=== PATIENT | male | born 1970 | race Caucasian/White ===

== ENCOUNTER 2020-10-25 17:21 | Outpatient (CLI) | payer BC, SELFPAY ==
[2020-10-25 17:47] LABS: Basophils Absolute Auto 0.2 K/mm3 (0.0-0.1); Basophils Percent Auto 1.3 % (0.2-1.2); Eosinophils Absolute Auto 0.3 K/mm3 (0-0.3); Eosinophils Percent Auto 2.9 % (0-4.4); Hematocrit 45.1 % (42.0-52.0); Hemoglobin 15.2 g/dL (14.0-18.0); Immature Granulocyte Absolute 0.04 K/mm3 (0.00-0.031); Immature Granulocyte Percent A 0.4 % (0-0.5); Lymphocytes Absolute Auto 4.05 K/mm3 (0.9-3.2); Lymphocytes Percent Auto 36.1 % (18.3-44.2); Mean Corpuscular HGB Conc 33.7 g/dl (32-36); Mean Corpuscular Hemoglobin 30.9 pg (26-34); Mean Corpuscular Volume 91.7 fl (80-100); Monocytes Absolute Auto 0.5 K/mm3 (0.1-0.6); Monocytes Percent Auto 4.8 % (2.6-8.5); Neutrophils Absolute Auto 6.1 K/mm3 (1.3-6.7); Neutrophils Percent Auto 54.5 % (45.5-73.1); Platelet Count Result 191 k/mm3 (150-375); Red Blood Count 4.92 M/mm3 (4.6-6.20); Red Cell Distribution Width 12.6 % (11.5-14.5); White Blood Count 11.2 K/mm3 (4.5-10.0)
[2020-10-25 17:58] LABS: Alanine Aminotransferase 15 U/L (4-50); Albumin Level 4.7 g/dL (3.5-5.1); Alkaline Phosphatase 73 U/L (38-126); Anion Gap 9 mmol/L (8-16); Aspartate Amino Transferase 29 U/L (17-59); Bilirubin,Total 0.5 mg/dL (0.2-1.3); Blood Urea Nitrogen 14 mg/dL (9-20); Calcium 9.8 mg/dL (8.4-10.2); Carbon Dioxide 27 mmol/L (22-30); Chloride 102 mmol/L (98-107); Estimated Glomerular Filt Rate > 60; Glucose 80 mg/dL (75-110); Potassium 3.8 mmol/L (3.4-5.0); Sodium 138 mmol/L (137-145)
[2020-10-25 18:30] LABS: Prostate Specific Antigen 1.4 ng/mL (< OR = 4.0)
[2020-10-28 19:43] LABS: Sex Hormone Binding Globulin 51 nmol/L (10-50)
[2020-10-30 14:13] LABS: Testosterone Free 216.4 pg/mL (35.0-155.0); Testosterone Total 1387 ng/dL (250-1100)
[2020-10-31 20:26] LABS: Estradiol, Ultrasensitive 6 pg/mL (< OR = 29)
== END 2020-10-25 17:22 | disposition home or self-care (01) ==
LOC: ANHLAB 17:29
PROVIDERS: PCP Chiropractor; Visit Provider Chiropractor
DX: N40.0 Benign prostatic hyperplasia without lower urinary tract symptoms (principal); E29.1 Testicular hypofunction; D75.1 Secondary polycythemia; Z79.890 Hormone replacement therapy
CPT/HCPCS: 36415; 80053; 82670; 84153; 84270; 84402; 84403; 85025

== ENCOUNTER 2021-01-03 20:06 | Emergency (ER) | payer BC, SELFPAY ==
--- NOTE | 2021-01-03 20:25 | PC.NURSE ---
1ST CALL FOR TRIAGE, NO ANSWER
--- NOTE | 2021-01-03 21:09 | PC.NURSE ---
2ND CALL NO ANSWER FOR TRIAGE
== END 2021-01-03 21:09 | disposition left against medical advice (07) ==
LOC: ANHED 21:24
DX: Z53.21 Procedure and treatment not carried out due to patient leaving prior to being seen by health care provider (principal)
CPT/HCPCS: 99199

== ENCOUNTER 2024-07-18 19:38 | Inpatient (IN) | payer BC, SELFPAY ==
--- NOTE | ~2024-07-18 | CT_ITS ---
EXAMINATION: CT abdomen pelvis w con DATE: 07/18/2024 21:11 INDICATION: LLQ pain. eval diverticulitis TECHNIQUE: Computed tomography (CT) of the abdomen and pelvis was performed with 100 mL Omnipaque-350 intravenous contrast. Automated exposure control and iterative reconstruction technique were employe d. The dose-length product was 206.83 mGy-cm. COMPARISON: None. FINDINGS: Lower thorax: Unremarkable Liver: Normal. Biliary/Gallbladder: Gallbladder is normal. No bile duct dilation. Pancreas: No mass or duct dilation. Spleen: Normal. Adrenals:No mass. Kidneys: Ectopic right kidney. Subcentimeter renal hypodensities on the left, too small to characteri ze but statistically most likely represent cysts. GI tract: Mild distal esophageal and gastric wall edema. No small or large bowel dilation. Long segme nt of marked small bowel inflammatory change including wall thickening and surrounding mesenteric inf lammation in the right lower abdomen and right upper pelvis, with evidence of extraluminal gas (witho ut a discrete wall), and adjacent 2.8 cm and 3.4 cm rim-enhancing fluid and gas collections likely re presenting mesenteric abscesses (which may be in communication). Moderate length segment of sigmoid w all thickening with surrounding inflammatory change, adjacent to the small bowel inflammatory process , and extending into the left pelvis. Appendix not confidently visualized Diverticulosis without dive rticulitis. Mesentery/Peritoneum: No ascites, mass, or free air. Retroperitoneum: No mass. Atherosclerotic calcifications of intra-abdominal arterial vessels. Pelvis: Partially distended urinary bladder with moderate wall thickening. Prostatomegaly. Soft Tissues: Soft tissues and body wall unremarkable. Bones: No acute osseous finding. IMPRESSION: Severe long segment small bowel enteritis with contained perforation and adjacent mesenteric abscesse s. Moderate length segment of sigmoid colitis, with surrounding inflammatory change. Correlate for history of inflammatory bowel disease. Infectious or ischemic enteritis/colitis are als o in the differential. Cystitis versus urinary bladder wall thickening from incomplete distention. Reviewed, dictated and finalized at location K. IMPRESSION: Severe long segment small bowel enteritis with contained perforation and adjace nt mesenteric abscesses. Moderate length segment of sigmoid colitis, with surrounding inflammatory wilkins e. Correlate for history of inflammatory bowel disease. Infectious or ischemic ent eritis/colitis are also in the differential. Cystitis versus urinary bladder wall thickening from incomplete distention.
[2024-07-18 19:40] VITALS: BP 161/69; PULSE 112; RESP 18; TEMP 36.3; O2SAT 97
--- OUTSIDE RECORDS SUMMARY | 2024-07-18 19:40 | XMS_ITS | Clinical Summary ---
Author Organization [facility] Address [address] [place] [phone] Phone Care Team Providers Care Refrigerating Oiler Name Role Phone Unavailable Primary Care Provider Unavailabl e Social History Tobacco Use Types Packs/Day Years Used Date Smoking Tobacco: Never Assessed Sex and Gender Information Value Date Recorded Sex Assigned at Not on file Legal Sex Male 12:47 PM CDT Gender Identity Not on file Sexual Orientation Not on file Last Filed Vital Signs Vital Sign Reading Time Taken Comments Blood Pressure 101/67 10/04/2020 5:42 PM CDT Pulse 92 10/04/2020 5:42 PM CDT Temperature 36.7 C (98 F) 10/04/2020 5:42 PM CDT Respiratory Rate 18 10/04/2020 5:42 PM CDT Oxygen Saturation 95% 10/04/2020 5:42 PM CDT Inhaled Oxygen Concentration - - Weight 65.8 kg (145 lb) 10/04/2020 5:42 PM CDT Height 185.4 cm (6' 1 ) 10/04/2020 5:42 PM CDT Body Mass Index 19.13 10/04/2020 5:42 PM CDT Plan of Treatment Health Maintenance Due Date Last Done Comments DTAP/TDAP/TD VACCINES (1 - Tdap) 07/08/1987 HEPATITIS B VACCINES (1 of 3 - 19+ 3-dose series) 07/08/1987 COLORECTAL SCREENING 2013 Colorectal Cancer Screening 2013 FIT-DNA Q 3 years 2013 FIT/FOBT Q 1 year 2013 Flex Sig/CT Colonography Q 5 years 2013 ZOSTER VACCINE (1 of 2) 2018 INFLUENZA VACCINE (#1) 2023 PNEUMOCOCCAL VACCINE 0-49 YEARS Aged Out No longer eligible based on patient's age to complete this topic
--- OUTSIDE RECORDS SUMMARY | 2024-07-18 19:40 | XMS_ITS | CONTINUITY OF CARE DOCUMENT ---
Author Name phil villarreal Address Unknown Organization [facility] Address [address] [place] [address] Phone [phone] Care Team Providers Care Organisation And Methods Analyst Name Role Phone Connor Molina MD Unavailable Connor Molina MD Unavailable [phone] INSURANCE PROVIDERS Payer name Policy type / Coverage type [place] red libertarian ID [facility] [id number]
[2024-07-18 19:57] LABS: Basophils Absolute Auto 0.1 K/mm3 (0.0-0.1); Basophils Percent Auto 0.6 % (0.2-1.2); Eosinophils Absolute Auto 0.1 K/mm3 (0-0.3); Eosinophils Percent Auto 0.3 % (0-4.4); Hematocrit 51.7 % (42.0-52.0); Hemoglobin 17.5 g/dL (14.0-18.0); Immature Granulocyte Absolute 0.08 K/mm3 (0.00-0.031); Immature Granulocyte Percent A 0.4 % (0-0.5); Lymphocytes Absolute Auto 2.81 K/mm3 (0.9-3.2); Lymphocytes Percent Auto 15.6 % (18.3-44.2); Mean Corpuscular HGB Conc 33.8 g/dl (32-36); Mean Corpuscular Hemoglobin 31.4 pg (26-34); Mean Corpuscular Volume 92.8 fl (80-100); Monocytes Percent Auto 5.8 % (2.6-8.5); Neutrophils Absolute Auto 13.9 K/mm3 (1.3-6.7); Neutrophils Percent Auto 77.3 % (45.5-73.1); Platelet Count Result 211 k/mm3 (150-375); Red Blood Count 5.57 M/mm3 (4.6-6.20); Red Cell Distribution Width 12.7 % (11.5-14.5)
[2024-07-18 20:07] LABS: Alanine Aminotransferase 17 U/L (6-50); Albumin Level 5.1 g/dL (3.5-5.1); Alkaline Phosphatase 83 U/L (38-126); Anion Gap 11 mmol/L (4-12); Aspartate Amino Transferase 25 U/L (17-59); Bilirubin,Total 1.7 mg/dL (0.2-1.3); Blood Urea Nitrogen 17 mg/dL (9-20); Calcium 9.9 mg/dL (8.4-10.2); Carbon Dioxide 29 mmol/L (22-30); Chloride 98 mmol/L (98-107); Estimated CRCL calculation 66 ml/min; Estimated Glomerular Filt Rate > 60; Glucose 122 mg/dL (65-110); Lipase 47 U/L (23-300); Potassium 4.1 mmol/L (3.4-5.0); Sodium 138 mmol/L (137-145)
[2024-07-18 20:36] LABS: Add Urine Microscopic? YES; Appearance Urine Clear (Clear); Bacteria Urine None Seen /hpf; Bilirubin Urine 1+ (Negative); Blood Urine Negative (Negative); Color Urine Dark Yellow (Yellow); Glucose Urine UA Negative (Negative); Ketones Urine 1+ mg/dL (Negative); Leukocyte Esterase Ur Negative LEU/UL (Negative); Need Manual Microscopic Reviewed; Nitrate Urine Negative (Negative); Non Pathogenic Casts 0-2; Protein Urine 1+ mg/dL (Negative); RBC Urine 0-2 /hpf (0-2); Specific Grav Ur 1.028 (1.001-1.035); Squamous Epithelial Cell Urine None Seen /hpf (Few); WBC Urine 0-5 /hpf (0-3); pH Urine 5.5 (5.0-9.0)
--- NOTE | 2024-07-18 20:49 | ED.GENADULT ---
HPI - General Adult General Chief complaint: Abdominal Pain Stated complaint: Diverticulitis flare up Time Seen by Provider: 07/18/24 20:02 History of Present Illness HPI narrative: 54-year-old male history of diverticulitis with abscess presenting for left lower quadrant pain. Pain started 2 days ago. It is worse with coughing and movement. Patient says this feels similar to prior diverticulitis bouts that he has had. Previous treatment was a [facility]. He denies fevers chills chest pain difficulty breathing or urinary symptoms. Last bowel movement was 3 days ago. Patient had nausea and vomiting yesterday but is just nauseous today. Related Data Home Medications ?Medication ?Instructions ?Recorded ?Confirmed ?Last Taken ?Type multivitamin with minerals 4 tablet PO DAILY 07/30/23 07/30/23 Unknown History (Hair,Skin and Nails tablet) Allergies Allergy/AdvReac Type Severity Reaction Status Date / Time No Known Allergies Allergy Mild Unverified 07/18/24 19:39 [facility] Past Medical History Medical History (Updated 07/19/24 @ 01:14 by Ranjith Arteaga MD) History of mixed drug abuse Quit in 1997 Diverticulitis Arthritis Anxiety Family History Family History Grandparent Pancreatic cancer Alcoholism in family member Depression Anxiety Mother Pre-diabetes Depression Anxiety Heart problem Grandparent Alcoholism in family member Cerebrovascular accident Social History Social History Social History: Caffeine: Coffee all day long Smoking status: Current every day smoker Alcohol intake: current Alcohol use details: either every other night or every night Whisky Substance use: former Substance use type: does not use Last use: 26 years ago Do You Feel Safe in your Home?: Yes Lack of Transportation: No Lack of Food: Never True Current Housing: I Have Housing Concerned About Future Housing: No Difficulty Paying Gas/Electric Bills: No Difficulty Paying for Meds: No Currently Unemployed: No Education: High School Diploma/GED Difficulty w/ Childcare or Family Care: No Living arrangements: with family Occupation/Education: occupation 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 Head: atraumatic. EYES: EOMI, NOSE: Atraumatic NECK: Trachea midline RESPIRATORY: No increased rate of breathing CTAB CARDIOVASCULAR: Tachycardic no peripheral edema ABDOMINAL: Abdomen is tender lower quadrants with voluntary guarding, no rebound MUSCULOSKELETAl: No obvious deformities NEURO: Alert. Moving 4/4 extremities SKIN:: Warm, dry. Normal color PSYCHIATRIC: Normal affect Course Vital Signs Vital signs: Vital Signs Temperature 97.3 F L 07/18/24 19:40 Pulse Rate 112 H 07/18/24 19:40 Respiratory Rate 18 07/18/24 19:40 Blood Pressure 161/69 H 07/18/24 19:40 Pulse Oximetry 97 07/18/24 19:40 Oxygen Delivery Room Air 07/18/24 19:40 Temperature 97.3 F L 07/18/24 19:40 Pulse Rate 86 07/19/24 01:12 Respiratory Rate 15 07/19/24 01:12 Blood Pressure 108/74 07/19/24 01:12 Pulse Oximetry 100 07/19/24 01:12 Oxygen Delivery Room Air 07/18/24 19:40 Medical Decision Making [facility] Narrative Medical decision making narrative: -Course: 54-year-old male presenting with abdominal pain. CT abdomen pelvis showed multiple abdominal abscesses with contain extraluminal air. Patient has white count of 18 his tachycardic. Given 5 days own given 30 cc/kilogram bolus for sepsis. Dr. Guzman is contacted and is aware of the patient. He will see the patient in the morning. Patient will be admitted the hospitalist for further management -DDX includes but is not limited to: Diverticulitis, appendicitis, colitis -Co-morbidities complicating care: Daily alcohol without withdrawal, history of diverticulitis with abscess Vital Signs Vital Signs: Vital Signs Temperature 97.3 F L 07/18/24 19:40 Pulse Rate 112 H 07/18/24 19:40 Respiratory Rate 18 07/18/24 19:40 Blood Pressure 161/69 H 07/18/24 19:40 Pulse Oximetry 97 07/18/24 19:40 Oxygen Delivery Room Air 07/18/24 19:40 Temperature 97.3 F L 07/18/24 19:40 Pulse Rate 86 07/19/24 01:12 Respiratory Rate 15 07/19/24 01:12 Blood Pressure 108/74 07/19/24 01:12 Pulse Oximetry 100 07/19/24 01:12 Oxygen Delivery Room Air 07/18/24 19:40 Lab Data 07/18/24 19:51 07/18/24 19:51 Labs: Lab Results 07/18/24 07/18/24 Range/Units 19:51 20:09 WBC 18.0 H (4.5-10.0) K/mm3 RBC 5.57 (4.6-6.20) M/mm3 Hgb 17.5 (14.0-18.0) g/dL Hct 51.7 (42.0-52.0) % MCV 92.8 (80-100) fl MCH 31.4 (26-34) pg MCHC 33.8 (32-36) g/dl RDW 12.7 (11.5-14.5) % Plt Count 211 (150-375) k/mm3 MPV 9.0 (7.4-10.4) fl Immature Gran % (Auto) 0.4 (0-0.5) % Neut % (Auto) 77.3 H (45.5-73.1) % Lymph % (Auto) 15.6 L (18.3-44.2) % [place] % (Auto) 5.8 (2.6-8.5) % Eos % (Auto) 0.3 (0-4.4) % Baso % (Auto) 0.6 (0.2-1.2) % Lymph # (Auto) 2.81 (0.9-3.2) K/mm3 [place] # (Auto) 1.0 H (0.1-0.6) K/mm3 Eos # (Auto) 0.1 (0-0.3) K/mm3 Baso # (Auto) 0.1 (0.0-0.1) K/mm3 Abs Immat Gran (auto) 0.08 H (0.00-0.031) K/mm3 Absolute Neuts (auto) 13.9 H (1.3-6.7) K/mm3 Absolute Nucleated RBC 0.000 (0.0-0.012) K/mm3 Nucleated RBC % 0.0 (0.0-0.2) % Sodium 138 (137-145) mmol/L Potassium 4.1 (3.4-5.0) mmol/L Chloride 98 (98-107) mmol/L Carbon Dioxide 29 (22-30) mmol/L Anion Gap 11 (4-12) mmol/L BUN 17 (9-20) mg/dL Creatinine 0.88 (0.7-1.3) mg/dL Estim Creat Clear Calc 66 ml/min Estimated GFR > 60 (59 - ) Glucose 122 H (65-110) mg/dL Calcium 9.9 (8.4-10.2) mg/dL Total Bilirubin 1.7 H (0.2-1.3) mg/dL AST 25 (17-59) U/L ALT 17 (6-50) U/L Alkaline Phosphatase 83 (38-126) U/L Total Protein 8.0 (6.3-8.2) g/dL Albumin 5.1 (3.5-5.1) g/dL Lipase 47 (23-300) U/L Urine Color Dark yellow (Yellow) Urine Appearance Clear (Clear) Urine pH 5.5 (5.0-9.0) Ur Specific [place] 1.028 (1.001-1.035) Urine Protein 1+ H (Negative) mg/dL Urine Glucose (UA) Negative (Negative) mg/dL Urine Ketones 1+ H (Negative) mg/dL Ur Blood (Man) Negative (Negative) Urine Nitrate Negative (Negative) Urine Bilirubin 1+ H (Negative) Urine Urobilinogen 1.0 (<2.0) mg/dL Add Ur Microanalysis Reviewed Leukocyte Esterase Rfl Negative (Negative) RANI/UL Urine RBC 0-2 (0-2) /hpf Urine WBC 0-5 (0-3) /hpf Ur Squamous Epith Cells None seen (Few) /hpf Urine Bacteria None seen /hpf Urine Casts 0-2 Critical Care Time Critical Care Time Critical Care Time: Yes Total Critical Care Time: 35 Discharge Plan Discharge Clinical Impression: Abdominal abscess, Sepsis Patient Disposition: Still a Patient Condition: Stable Patient Language: Kiswahili Prescriptions: No Action Hair,Skin and Nails Tablet 4 tablet PO DAILY Patient Comments: Frankie Reeves (Nutrafol hair supplement-online) Follow-up/Referrals: Francesco Andrade DO [Primary Care Provider] -
[2024-07-18] MEDS: ONDANSETRON INJ 4 MG/2 ML VIAL IV PUSH (21:01)
[2024-07-18] MEDS: HYDROmorphone HCL INJ (*CRX) 1 MG/ML SYR 0.5 MG IV PUSH (21:01)
[2024-07-18] MEDS: SODIUM CHLORIDE 0.9% IV 1,000 ML 999 ML IV CONT ×2 (21:02)
[2024-07-18] MEDS: PIPERACILLN/TAZ 3.375GM/NS50ML 3.375 GM/50 ML BAG IVPB (21:03)
--- OUTSIDE RECORDS SUMMARY | 2024-07-18 21:49 | XMS_ITS | CONTINUITY OF CARE DOCUMENT ---
Author Name phil villarreal Address Unknown Organization [facility] Address [address] [place] [address] Phone [phone] Care Team Providers Care Waiter/Waitress Bar Name Role Phone Connor Molina MD Unavailable Connor Molina MD Unavailable [phone] INSURANCE PROVIDERS Payer name Policy type / Coverage type [place] red green party ID [facility] [id number]
--- OUTSIDE RECORDS SUMMARY | 2024-07-18 21:49 | XMS_ITS | Clinical Summary ---
Author Organization [facility] Address [address] [place] [phone] Phone Care Team Providers Care Content Management Specialist Name Role Phone Unavailable Primary Care Provider [...]
[2024-07-18 22:06] VITALS: BP 112/78; PULSE 80; RESP 15; O2SAT 100
[2024-07-19] VITALS (7 sets, daily range): BP systolic 102–118; BP diastolic 62–75; PULSE 65–87; RESP 14–18; TEMP 35.9–36.8; O2SAT 95–100; BMI 17.6
[2024-07-19] MEDS: LACTATED RINGERS 1,000 ML 150 ML IV CONT (00:57)
[2024-07-19] MEDS: PIPERACILLN/TAZ 3.375GM/NS50ML 3.375 GM/50 ML BAG IVPB ×4 (02:22→21:09)
--- NOTE | 2024-07-19 02:40 | P.HP_ITS ---
H&P: HPI History of Present Illness Date/Time: 07/19/24 02:40 Chief Complaint: Abdominal pain Narrative: 54-year-old male with a past medical history of heavy alcohol use and multiple prior hospitalizations for diverticulitis December 2023 who presented to the ER with 4 days of left lower abdominal pain. The patient reports that he has had for 5 episodes of diverticulitis over the last 6 years. His pain always starts in the left lower quadrant and is moderate and severe in intensity. Pain is worse with palpation of the left lower quadrant. It is usually accompanied by smaller volume of stool and or not passing bowel was for a couple of days prior to onset of abdominal pain. This time he did have a small stool was 3 days ago and was normally formed with normal color. He denies any history of inflammatory bowel disease, hematochezia, mucousy stools or abdominal pain that occurs at other times when he does not have diverticulitis. He reports that he always has a thin body habitus and his weight is been stable. He did have 1 episode of vomiting on Friday. He decided come into the hospital due to the persistence of symptoms and persistent nausea. He has not had any further vomiting. He denies having any fevers or chills. He has been having normal urine output he reports that surgical resection as mentioned does the option for management in the past but he has always declined because he did not want to take 5-6 weeks off of work for recovery. He had a colonoscopy fiber 6 years ago after 1 of his episodes of diverticulitis. He denies any known history of ulcerative colitis or inflammatory bowel disease He reports that he does smoke and has done so since a teenager. He has a smoker's cough but has not had any other respiratory symptoms. His abdominal pain is worse when he coughs. He denies any chest pain or known history of COPD. He has not been wheezing. He does drink 3 fingers of bourbon a night most nights but denies history of alcohol withdrawal or irritability without alcohol. Review of Systems 2 Review of Systems: 12 systems were reviewed with pertinent positives and negatives per HPI. Except as documented in the HPI, all other systems were reviewed and are negative. [facility] Past Medical History Medical History (Updated 07/19/24 @ 02:49 by Radha Higuera DO) Heavy alcohol use Tobacco abuse Hypogonadism in male Adhesive capsulitis of left shoulder History of mixed drug abuse Quit in 1997 Diverticulitis Arthritis Anxiety Surgical History Surgical History (Updated 07/19/24 @ 02:44 by Radha Higuera DO) History of tonsillectomy and adenoidectomy Family History Family History Grandparent Alcoholism in family member Pancreatic cancer Anxiety Depression Mother Anxiety Depression Heart problem Pre-diabetes Diverticulitis Grandparent Alcoholism in family member Cerebrovascular accident Social History Social History (Updated 07/19/24 @ 07:03 by Radha Higuera DO) Social History: He and his have been since 2002. They have a 21-year-old son. He has smoked up to 1.5 packs of cigarettes per day since he was a teenager. He drinks 3 fingers (shots) of bourbon night. He has history of prior hallucinogen and marijuana use. He drinks large amounts of caffeine. He works at a [employer]. Code status: Full code Surrogate decision maker: Earlene Burden () Smoking packs per day: 1.25 Smoking cigarettes per day: 25.0 Years smoked: 40 Smoking pack-years: 50.00 Smoking status: Current every day smoker Tobacco type: cigarettes Alcohol intake: current Drinks per week: 21 Alcohol use details: 2-3 fingers of bourbon every night. Substance use: former Substance use type: marijuana and hallucinogens Last use: 26 years ago Do You Feel Safe in your Home?: Yes Lack of Transportation: No Lack of Food: Never True Current Housing: I Have Housing Concerned About Future Housing: No Difficulty Paying Gas/Electric Bills: No Difficulty Paying for Meds: No Currently Unemployed: No Education: High School Diploma/GED Difficulty w/ Childcare or Family Care: No Living arrangements: with family Occupation/Education: occupation Additional occupation/education comments: [employer] Gender identity (if verbalized by the patient): Female Sexual Orientation (if Verbalized by the Patient): Straight or Heterosexual Spiritual care concerns: No Agree to blood products: Yes Meds Home Medications and Allergies Home Medications ?Medication ?Instructions ?Recorded ?Confirmed ?Type multivitamin with minerals 4 tablet PO DAILY 07/30/23 07/19/24 History (Hair,Skin and Nails tablet) Allergies Allergy/AdvReac Type Severity Reaction Status Date / Time No Known Allergies Allergy Mild Unverified 07/19/24 02:19 Vital Signs Vital Signs - 24 hr 07/18/24 19:40 07/18/24 22:06 07/19/24 01:12 Temperature 97.3 F L Pulse Rate 112 H 80 86 Respiratory Rate 18 15 15 Blood Pressure 161/69 H 112/78 108/74 Pulse Oximetry 97 100 100 Oxygen Delivery Room Air 07/19/24 01:13 07/19/24 02:15 Temperature 97.2 F L Pulse Rate 86 87 Respiratory Rate 15 18 Blood Pressure 108/74 118/75 Pulse Oximetry 99 99 Oxygen Delivery Exam 2 Narrative: Weight 60.8 kg BMI 17.7 Const: Other: No acute distress, thin body habitus, appears stated age, sitting up in the bed with knees drawn up and arms lying across his knees HENMT: Other: Mucous membranes are tacky, no oral pharyngeal erythema, dental caries noted, head is normocephalic atraumatic Eyes: Other: Pupils are equal and reactive, no scleral icterus, no conjunctival pallor Neck: Other: No lymphadenopathy, no thyromegaly Resp: Other: Clear to auscultation bilaterally, no increased work of breathing Cardio: Other: Regular rate, regular rhythm, 2+ bilateral radial pedal pulses GI: Other: Voluntary guarding most notably in the left lower quadrant, normoactive bowel sounds, nondistended, no organomegaly Skin: Other: Warm to touch, no jaundice, no pallor, multiple tattoos noted some of which around the dorsum of bilateral forearms Neuro: Other: Alert oriented, speech is clear, no facial asymmetry, no localizing neurologic deficits noted during the course of conversation Extrem: Other: No clubbing, cyanosis or edema, moves all extremities equally Psych: Other: Restless, flat affect, appropriate judgment and insight H&P: Results Labs Labs: Laboratory Tests 07/18/24 19:51 07/18/24 19:51 07/18/24 07/18/24 19:51 20:09 WBC 18.0 H RBC 5.57 Hgb 17.5 Hct 51.7 MCV 92.8 MCH 31.4 MCHC 33.8 RDW 12.7 Plt Count 211 MPV 9.0 Immature Gran % (Auto) 0.4 Neut % (Auto) 77.3 H Lymph % (Auto) 15.[address] % (Auto) 5.8 Eos % (Auto) 0.3 Baso % (Auto) 0.6 Lymph # (Auto) 2.81 [place] # (Auto) 1.0 H Eos # (Auto) 0.1 Baso # (Auto) 0.1 Abs Immat Gran (auto) 0.08 H Absolute Neuts (auto) 13.9 H Absolute Nucleated RBC 0.000 Nucleated RBC % 0.0 Sodium 138 Potassium 4.1 Chloride 98 Carbon Dioxide 29 Anion Gap 11 BUN 17 Creatinine 0.88 Estim Creat Clear Calc 66 Estimated GFR > 60 Glucose 122 H Calcium 9.9 Total Bilirubin 1.7 H AST 25 ALT 17 Alkaline Phosphatase 83 Total Protein 8.0 Albumin 5.1 Lipase 47 Urine Color Dark yellow Urine Appearance Clear Urine pH 5.5 Ur Specific [place] 1.028 Urine Protein 1+ H Urine Glucose (UA) Negative Urine Ketones 1+ H Ur Blood (Man) Negative Urine Nitrate Negative Urine Bilirubin 1+ H Urine Urobilinogen 1.0 Add Ur Microanalysis Reviewed Leukocyte Esterase Rfl Negative Urine RBC 0-2 Urine WBC 0-5 Ur Squamous Epith Cells None seen Urine Bacteria None seen Urine Casts 0-2 Impressions Abdomen/Pelvis CT 07/18/24 21:14 IMPRESSION: Severe long segment small bowel enteritis with contained perforation and adjacent mesenteric abscesses. Moderate length segment of sigmoid colitis, with surrounding inflammatory change. Correlate for history of inflammatory bowel disease. Infectious or ischemic enteritis/colitis are also in the differential. Cystitis versus urinary bladder wall thickening from incomplete distention. All imaging personally reviewed and interpreted. And unless stated otherwise agree with radiologic and cardiology interpretation. Assessment and Plan Assessment and plan (1) Sepsis: Qualifiers: Sepsis acute organ dysfunction status: without acute organ dysfunction Sepsis type: sepsis due to unspecified organism Qualified Code(s): A41.9 - Sepsis, unspecified organism Code(s): A41.9 - Sepsis, unspecified organism Status: Acute (2) Abdominal abscess: Status: Acute (3) Heavy alcohol use: Code(s): F10.90 - Alcohol use, unspecified, uncomplicated Status: Acute (4) Tobacco abuse: Code(s): Z72.0 - Tobacco use Status: Acute Plan Patient has long segment of bowel enteritis/inflammation with perforation and adjacent mesenteric abscesses with additional possible sigmoid colitis and inflammatory changes. Some aspects of the imaging results could be seen with inflammatory bowel disease although the patient is not describing symptoms or pattern consistent with inflammatory bowel disease. But he reports he only diverticulitis noted on prior colonoscopy 5-6 years ago.. Patient has been started on empiric antibiotic therapy with Zosyn. General surgery was consulted from the ER. Patient's CT also did demonstrate distal esophageal and gastric wall edema. Will place the patient on Protonix for prophylaxis and treatment. Will place patient on IV fluid hydration as he is NPO. Patient does have a history of tobacco abuse nicotine patch be provided as needed and his history of alcohol abuse but denies any history of alcohol withdrawal. Will place patient on daily thiamin supplement and will monitor CIWA scores. Will add benzos if symptoms of withdrawal develop. The patient does meet SIRS criteria with tachycardia and leukocytosis in the setting of acute infection. I have added blood cultures but blood cultures were obtained after the patient was started on antibiotic therapy. Will obtain coag panel the case the patient may need surgical intervention. Will repeat CBC in a.m.. Quality VTE Prophylaxis VTE prophylaxis: pharmacologic ordered (Lovenox 40 mg subQ daily.) Hospitalist [facility] Advance Care Plan I have confirmed that the patient's Advanced Care Plan is present, code status is documented, or surrogate decision maker is listed in patient medical record.: Yes Medication Reconciliation I have utilized all available resources to obtain, update and review the patients current medications (includes all prescriptions, OTC, herbals, cannabis, and nutritional supplements).: Yes
[2024-07-19 04:47] LABS: Basophils Absolute Auto 0.1 K/mm3 (0.0-0.1); Basophils Percent Auto 0.3 % (0.2-1.2); Eosinophils Absolute Auto 0.1 K/mm3 (0-0.3); Eosinophils Percent Auto 0.4 % (0-4.4); Hematocrit 43.7 % (42.0-52.0); Hemoglobin 14.5 g/dL (14.0-18.0); Immature Granulocyte Absolute 0.08 K/mm3 (0.00-0.031); Immature Granulocyte Percent A 0.5 % (0-0.5); Lymphocytes Absolute Auto 1.84 K/mm3 (0.9-3.2); Lymphocytes Percent Auto 11.6 % (18.3-44.2); Mean Corpuscular HGB Conc 33.2 g/dl (32-36); Mean Corpuscular Hemoglobin 31.3 pg (26-34); Mean Corpuscular Volume 94.4 fl (80-100); Mean Platelet Volume 9.3 fl (7.4-10.4); Monocytes Absolute Auto 0.8 K/mm3 (0.1-0.6); Neutrophils Absolute Auto 13.1 K/mm3 (1.3-6.7); Neutrophils Percent Auto 82.2 % (45.5-73.1); Platelet Count Result 154 k/mm3 (150-375); Red Blood Count 4.63 M/mm3 (4.6-6.20); Red Cell Distribution Width 12.6 % (11.5-14.5); White Blood Count 15.9 K/mm3 (4.5-10.0)
[2024-07-19 04:58] LABS: INR 1.2; Prothrombin Time 15.3 Seconds (11.1-14.7)
[2024-07-19 04:59] LABS: Partial Thromboplastin Time 27.4 Seconds (22.3-36.8)
--- NOTE | 2024-07-19 07:30 | PM.IMPN ---
Progress Note: A&P Assessment and Plan (1) Sepsis: Qualifiers: Sepsis acute organ dysfunction status: without acute organ dysfunction Sepsis type: sepsis due to unspecified organism Qualified Code(s): A41.9 - Sepsis, unspecified organism Code(s): A41.9 - Sepsis, unspecified organism Status: Acute Assessment and Plan: Meets SIRS criteria: Tachycardia, Leukocytosis - Abd/Pelvis CT: Severe long segment small bowel enteritis with contained perforation and adjacent mesenteric abscesses. Moderate length segment of sigmoid colitis, with surrounding inflammatory change. Correlate for history of inflammatory bowel disease. Infectious or ischemic enteritis/colitis are also in the differential. Cystitis versus urinary bladder wall thickening from incomplete distention. - lactic acid: pending - IVF: LR 150mL/hr - suspected source: Abdominal abscess - blood cultures drawn on 07/19 - UA: 1+ protein, 1+ ketones, 1+ bilirubin, otherwise unremarkable - General surgery Consulted, will appreciate recommendations (2) Abdominal abscess: Status: Acute Assessment and Plan: - Abd/Pelvis CT: Severe long segment small bowel enteritis with contained perforation and adjacent mesenteric abscesses. Moderate length segment of sigmoid colitis, with surrounding inflammatory change. Correlate for history of inflammatory bowel disease. Infectious or ischemic enteritis/colitis are also in the differential. Cystitis versus urinary bladder wall thickening from incomplete distention. - General Surgery consulted - Started on Zosyn (3) Enteritis: Code(s): K52.9 - Noninfective gastroenteritis and colitis, unspecified Status: Acute Assessment and Plan: - Abd/Pelvis CT: Severe long segment small bowel enteritis with contained perforation and adjacent mesenteric abscesses. Moderate length segment of sigmoid colitis, with surrounding inflammatory change. - GI consulted - Improving on IV Abx, monitor symptoms and daily CBC - Continue supportive care - Pt will need outpt colonoscopy (4) Tobacco abuse: Code(s): Z72.0 - Tobacco use Status: Acute Assessment and Plan: - Given nicotine patch 21mg daily (5) Heavy alcohol use: Code(s): F10.90 - Alcohol use, unspecified, uncomplicated Status: Acute Assessment and Plan: - denies history of ETOH withdrawal - Started on thiamine supplement - monitor CIWA Time Spent With Patient Time: 15-25 Subjective Date/time seen: 07/19/24 07:30 Interval history: 54-year-old male with a past medical history of heavy alcohol use and multiple prior hospitalizations for diverticulitis December 2023 who presented to the ER with 4 days of left lower abdominal pain. The patient reports that he has had for 5 episodes of diverticulitis over the last 6 years. 07/19/2024 Patient sitting comfortably in bed. Denies any chest pain, SOB, n/v at this time. Does complain of LLQ abdominal pain, worse upon palpation. No radiation. No urinary complaints. No peritoneal signs and symptoms already improving with IV abx. Gen surg and GI consulted. Leukocytosis improving. Electrolytes unremarkable. Review of Systems Review of Systems: 12 systems were reviewed with pertinent positives and negatives per HPI. Except as documented in the HPI, all other systems were reviewed and are negative. Exam Narrative: Weight 60.8 kg BMI 17.7 Const: Other: No acute distress, thin body habitus, appears stated age, sitting up in the bed with knees drawn up and arms lying across his knees HENMT: Other: Mucous membranes are tacky, no oral pharyngeal erythema, dental caries noted, head is normocephalic atraumatic Eyes: Other: Pupils are equal and reactive, no scleral icterus, no conjunctival pallor Neck: Other: No lymphadenopathy, no thyromegaly Resp: Other: Clear to auscultation bilaterally, no increased work of breathing Cardio: Other: Regular rate, regular rhythm, 2+ bilateral radial pedal pulses GI: Other: Voluntary guarding most notably in the left lower quadrant, normoactive bowel sounds, nondistended, no organomegaly Skin: Other: Warm to touch, no jaundice, no pallor, multiple tattoos noted some of which around the dorsum of bilateral forearms Neuro: Other: Alert oriented, speech is clear, no facial asymmetry, no localizing neurologic deficits noted during the course of conversation Extrem: Other: No clubbing, cyanosis or edema, moves all extremities equally Psych: Other: Restless, flat affect, appropriate judgment and insight Objective Data Vital Signs Vital Signs: Vital Signs - 24 hr 07/18/24 19:40 07/18/24 22:06 07/19/24 01:12 Temperature 97.3 F L Pulse Rate 112 H 80 86 Respiratory Rate 18 15 15 Blood Pressure 161/69 H 112/78 108/74 Pulse Oximetry 97 100 100 Oxygen Delivery Room Air 07/19/24 01:13 07/19/24 02:15 07/19/24 04:35 Temperature 97.2 F L 96.7 F L Pulse Rate 86 87 79 Respiratory Rate 15 18 18 Blood Pressure 108/74 118/75 107/62 Pulse Oximetry 99 99 95 Oxygen Delivery Intake/Output Intake/Output: Intake & Output 07/16/24 07/17/24 07/18/24 07/19/24 23:59 23:59 23:59 23:59 Intake Total 2049 0 Balance 2049 0 Meds/Results Medications: Active Medications Generic Name Dose Route Start Last Admin Trade Name Freq PRN Reason Stop Dose Admin Enoxaparin Sodium 40 mg 07/19/24 09:00 Enoxaparin 40 Mg/0.4 Ml Syringe SUB-Q DAILY CLAUDIA Hydromorphone HCl 0.5 mg 07/19/24 00:07 Hydromorphone Hcl Inj (*Crx) 2 Mg/Ml Vial IV PUSH Q3H PRN Pain Rated 7-10 Piperacillin/Tazobactam/Dextrose 3.375 gm in 50 mls @ 100 mls/hr 07/19/24 03:00 07/19/24 02:22 Zosyn 3.375 Gm/Ns 50 Ml IVPB 100 mls/hr Q6H CLAUDIA Administration Potassium Chloride/Dextrose/Sod Cl 1,000 mls @ 100 mls/hr 07/19/24 07:30 Kcl 20 Meq/D5/0.9% Sod Chl IV CONT .Q10H CLAUDIA Nicotine 1 patch 07/19/24 02:49 Nicotine (*Pbkc) 21 Mg Patch TRANSDERM DAILY PRN Nicotine withdrawal Thiamine HCl 100 mg 07/19/24 09:00 Thiamine Hcl 200 Mg/2 Ml Vial IV PUSH QAM [facility] Radiology Results: ITS Impressions Abdomen/Pelvis CT 07/18/24 21:14 IMPRESSION: Severe long segment small bowel enteritis with contained perforation and adjacent mesenteric abscesses. Moderate length segment of sigmoid colitis, with surrounding inflammatory change. Correlate for history of inflammatory bowel disease. Infectious or ischemic enteritis/colitis are also in the differential. Cystitis versus urinary bladder wall thickening from incomplete distention. Labs Labs: Laboratory Results - last 24 hr 07/18/24 07/18/24 07/19/24 19:51 20:09 04:02 WBC 18.0 H 15.9 H RBC 5.57 4.63 Hgb 17.5 14.5 D Hct 51.7 43.7 MCV 92.8 94.4 MCH 31.4 31.3 MCHC 33.8 33.2 RDW 12.7 12.6 Plt Count 211 154 MPV 9.0 9.3 Immature Gran % (Auto) 0.4 0.5 Neut % (Auto) 77.3 H 82.2 H Lymph % (Auto) 15.6 L 11.6 L [place] % (Auto) 5.8 5.0 Eos % (Auto) 0.3 0.4 Baso % (Auto) 0.6 0.3 Lymph # (Auto) 2.81 1.84 [place] # (Auto) 1.0 H 0.8 H Eos # (Auto) 0.1 0.1 Baso # (Auto) 0.1 0.1 Abs Immat Gran (auto) 0.08 H 0.08 H Absolute Neuts (auto) 13.9 H 13.1 H Absolute Nucleated RBC 0.000 0.000 Nucleated RBC % 0.0 0.0 PT 15.3 H INR 1.2 APTT 27.4 Sodium 138 Potassium 4.1 Chloride 98 Carbon Dioxide 29 Anion Gap 11 BUN 17 Creatinine 0.88 Estim Creat Clear Calc 66 Estimated GFR > 60 Glucose 122 H Calcium 9.9 Total Bilirubin 1.7 H AST 25 ALT 17 Alkaline Phosphatase 83 Total Protein 8.0 Albumin 5.1 Lipase 47 Urine Color Dark yellow Urine Appearance Clear Urine pH 5.5 Ur Specific [place] 1.028 Urine Protein 1+ H Urine Glucose (UA) Negative Urine Ketones 1+ H Ur Blood (Man) Negative Urine Nitrate Negative Urine Bilirubin 1+ H Urine Urobilinogen 1.0 Add Ur Microanalysis Reviewed Leukocyte Esterase Rfl Negative Urine RBC 0-2 Urine WBC 0-5 Ur Squamous Epith Cells None seen Urine Bacteria None seen Urine Casts 0-2 Quality VTE Prophylaxis VTE prophylaxis: pharmacologic ordered (Lovenox 40 mg subQ daily.)
[2024-07-19 08:57] LABS: Lactic Acid Reflex 0.5 mmol/L (0.7-2.0)
[2024-07-19] MEDS: ENOXAPARIN 40 MG/0.4 ML SYRINGE SUB-Q (09:12)
[2024-07-19] MEDS: THIAMINE HCL 200 MG/2 ML VIAL 100 MG IV PUSH (09:12)
[2024-07-19 09:22] LABS: CRP 13.1 mg/dL (<1.0)
[2024-07-19] MEDS: KCL 20 MEQ/D5/0.9% SOD CHL 1,000 ML 100 ML IV CONT ×2 (10:47→21:09)
--- NOTE | 2024-07-19 12:28 | P.CONGI_ITS ---
Assessment and Plan Assessment and plan (1) Enteritis: Code(s): K52.9 - Noninfective gastroenteritis and colitis, unspecified Status: Acute (2) Abdominal abscess: Status: Acute (3) Colitis: Code(s): K52.9 - Noninfective gastroenteritis and colitis, unspecified Status: Acute (4) Alcohol use: Code(s): Z78.9 - Other specified health status Status: Acute (5) Sepsis: Qualifiers: Sepsis acute organ dysfunction status: without acute organ dysfunction Sepsis type: sepsis due to unspecified organism Qualified Code(s): A41.9 - Sepsis, unspecified organism Code(s): A41.9 - Sepsis, unspecified organism Status: Acute Plan 1. Enteritis with perf and abscess/diverticulitis/LLQ pain/incontinence/sepsis/ETOH abuse: Per patient last colonoscopy performed in 2021 following an episode of diverticulitis and per patient colonoscopy was unremarkable. Patient states that he had been doing well for a few years but was hospitalized at [facility] again in December of 2023 for diverticulitis. Patient came into the ER yesterday with complaints of severe left lower quadrant pain. Pain has nearly resolved and he states it is now just a dull discomfort. CT onad mission showed severe long segment small bowel enteritis with contained perforation and adjacent mesenteric abscesses and moderate length segment of sigmoid colitis, with surrounding inflammatory change. Prior to admissions he states that he was having regular daily bowel movements that are urgent at times and according to the patient he has rare episodes of fecal incontinence last episode occurred a few weeks ago. He denies any fever or rectal bleeding. He has had no BM since Friday but on Friday he had a small formed bowel movement. He has never followed up with GI other than for his colonoscopy following his hospitalizations. Abdominal exam benign. DDX: Acute infectious etiology versus IBD versus ischemic * Patient is aware that he needs to follow up with us outpatient for further workup and management. He is aware that he will need a colonoscopy in the near future but would recommend that this be performed once his acute infection/ inflammation has resolved. This will allow us to better establish etiology of symptoms * continue antibiotics * Continue supportive care * [facility] protocol for Hx of ETOH abuse * Surgical consult pending recommendations Thank you very much for allowing me to share in the care of this very nice patient. This report may have been done utilizing a voice recognition system. Attempts have been made to correct errors. However, there may be uncorrected grammatical, spelling, and recognition errors present. GI Consult Note Consult date/time: 07/19/24 12:28 Reason for consult: Enteritis HPI: Joseph Burden is a 54 year old male with past medical surgical Hx of ETOH abuse, anxiety, and multiple prior diagnoses of diverticulitis. He presented to the ER yesterday with complaints for LLQ pain. Patient was admitted for sepsis and enteritis with abscess. GI consulted for enteritis. The patient was accompanied by his Earlene throughout the entire visit. patient states that he he has been treated for diverticulitis on multiple occasions. Patient states he had 1 episode in 2021 and had a follow-up colonoscopy performed in the local area but was unable to say which doctor performed it. Patient states that following his colonoscopy things were good for a few years and then he was hospitalized in December a [facility] for another episode of diverticulitis. Patient states that yesterday he started experiencing an acute onset of severe left lower quadrant abdominal pain which prompted him to proceed to the emergency room. He states that his left lower quadrant pain is now only a dull ache. He admits to occasional episodes of generalized abdominal pain that is crampy in nature after meals but is unable to say how frequently this occurs. He is typically having regular bowel movements every 1-2 days that are formed and non urgent. Last bowel movement was Friday and he states was formed and small. He denies any hematochezia or melena. He admits to occasional episodes of fecal incontinence if he is not close to a bathroom. He denies any nausea, vomiting, bloating, odynophagia, dysphagia, reflux, regurgitation, early satiety, unexplained weight loss, appetite loss, diarrhea, or melena. He denies any NSAID, aspirin, or anticoagulant use prior to hospitalization. He drinks a glass of whiskey daily, smokes 25 cigarettes per day and denies any marijuana use. Patient states that he has maternal grandmother was diagnosed with bile duct cancer. ENDOSCOPY HISTORY: EGD: Patient has never had an EGD COLONOSCOPY: per patient last colonoscopy in 2021 was unremarkable but he was unable to provide any further details LABS AND STOOL STUDIES: Labs 07/19/2024: Sodium 138, potassium 4.1, BUN 17, creatinine 0.88, GFR > 60 WBC 16, HGB 15, HCT 44, MCV 94, platelets 154, INR 1.2 Total bilirubin 1.7, AST 23, ALT 17, alkaline phosphatase 83, albumin 5.1 Lactic acid 0.5, CRP 13.1, lipase 47 IMAGING: CT abd/pelvis w/contrast 07/18/2024: IMPRESSION: Severe long segment small bowel enteritis with contained perforation and adjacent mesenteric abscesses. Moderate length segment of sigmoid colitis, with surrounding inflammatory change. Correlate for history of inflammatory bowel disease. Infectious or ischemic enteritis/colitis are also in the differential. Cystitis versus urinary bladder wall thickening from incomplete distention. Review of Systems 2 Constitutional: Constitutional: Reports as per HPI ENT: Reports as per HPI Cardiovascular: Cardiovascular: Reports as per HPI, Denies chest pain and Denies dyspnea Respiratory: Respiratory: Denies cough and Denies dyspnea Gastrointestinal: Gastrointestinal: Reports as per HPI Musculoskeletal: Musculoskeletal: Reports as per HPI Integumentary/Breasts: Skin/Breast: Reports as per HPI Psychiatric: Psychiatric: Reports as per HPI Endocrine: Endocrine: Reports no additional endocrine complaints Hematologic/Lymphatic: Hematologic/Lymphatic: Reports no additional hematologic/lymphatic complaints [facility] Past Medical History Medical History (Updated 07/19/24 @ 13:22 by TATI Conway) Heavy alcohol use Tobacco abuse Hypogonadism in male Adhesive capsulitis of left shoulder History of mixed drug abuse Quit in 1997 Diverticulitis Arthritis Anxiety Surgical History Surgical History History of tonsillectomy and adenoidectomy Family History Family History Grandparent Alcoholism in family member Pancreatic cancer Anxiety Depression Mother Anxiety Depression Heart problem Pre-diabetes Diverticulitis Grandparent Alcoholism in family member Cerebrovascular accident Social History Social History Social History: He and his have been since 2002. They have a 21-year-old son. He has smoked up to 1.5 packs of cigarettes per day since he was a teenager. He drinks 3 fingers (shots) of bourbon night. He has history of prior hallucinogen and marijuana use. He drinks large amounts of caffeine. He works at a [employer]. Code status: Full code Surrogate decision maker: Earlene Burden () Smoking packs per day: 1.25 Smoking cigarettes per day: 25.0 Years smoked: 40 Smoking pack-years: 50.00 Smoking status: Current every day smoker Tobacco type: cigarettes Alcohol intake: current Drinks per week: 21 Alcohol use details: 2-3 fingers of bourbon every night. 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 Gender identity (if verbalized by the patient): Female Sexual Orientation (if Verbalized by the Patient): Straight or Heterosexual Spiritual care concerns: No Agree to blood products: Yes Meds Home Medications and Allergies Home Medications ?Medication ?Instructions ?Recorded ?Confirmed ?Type multivitamin with minerals 4 tablet PO DAILY 07/30/23 07/19/24 History (Hair,Skin and Nails tablet) Allergies Allergy/AdvReac Type Severity Reaction Status Date / Time No Known Allergies Allergy Mild Unverified 07/19/24 02:19 Vital Signs Vital Signs - 24 hr 07/18/24 19:40 07/18/24 22:06 07/19/24 01:12 Temperature 97.3 F L Pulse Rate 112 H 80 86 Respiratory Rate 18 15 15 Blood Pressure 161/69 H 112/78 108/74 Pulse Oximetry 97 100 100 Oxygen Delivery Room Air 07/19/24 01:13 07/19/24 02:15 07/19/24 04:35 Temperature 97.2 F L 96.7 F L Pulse Rate 86 87 79 Respiratory Rate 15 18 18 Blood Pressure 108/74 118/75 107/62 Pulse Oximetry 99 99 95 Oxygen Delivery Exam 2 Const: General: cooperative, comfortable, no acute distress and well developed Nutritional Appearance: thin and underweight Orientation/consciousness: o riented to person, oriented to place, oriented to time and patient oriented x3 HENMT: Head: normal to inspection, normocephalic and atraumatic Mouth: Yes Normal oral and palatal mucosa present and Yes moist mucous membranes Eyes: General: appearance normal, both eyes and all related structures C onjunctivae: conjunctivae normal Sclera: sclerae normal Pupils: Equal, round and reactive pupils present Neck: Neck: normal visual inspection Chest: Chest palpation & inspection: normal inspection of the chest Resp: Effort & Inspection: normal respiratory effort and able to speak in complete sentences Auscultation: clear to auscultation bilaterally Cardio: Jugular venous distension: no JVD Rate: regular rate Rhythm: r egular rhythm Heart sounds: S1 normal heart sound present and S2 normal heart sound present GI: Inspection: normal to inspection GI Palp: Yes Soft to palpation, No Tenderness to palpation present (GI), No Guarding due to palpation present (GI) and Yes No hepatosplenomegaly present Auscultation: normal bowel sounds R ectal Exam: deferred Skin: General skin exam: normal color and no rashes or lesions noted Neuro: General: oriented to person, oriented to place, oriented to time and patient oriented x3 Cranial nerves: Yes Equal, round and reactive pupils present Speech: normal speech Extrem: General: normal to inspection and no clubbing, cyanosis or edema Psych: Appearance: grossly normal and well kempt Affect: normal affect Results Labs 07/19/24 04:02 07/18/24 19:51 Labs: Short CBC 07/18/24 07/19/24 Range/Units 19:51 04:02 WBC 18.0 H 15.9 H (4.5-10.0) K/mm3 Hgb 17.5 14.5 D (14.0-18.0) g/dL Hct 51.7 43.7 (42.0-52.0) % Plt Count 211 154 (150-375) k/mm3 BMP 07/18/24 19:51 Sodium 138 Potassium 4.1 Chloride 98 Carbon Dioxide 29 BUN 17 Creatinine 0.88 Glucose 122 H Calcium 9.9 Liver Function 07/18/24 Range/Units 19:51 Total Bilirubin 1.7 H (0.2-1.3) mg/dL AST 25 (17-59) U/L ALT 17 (6-50) U/L Alkaline Phosphatase 83 (38-126) U/L Albumin 5.1 (3.5-5.1) g/dL Urine 07/18/24 Range/Units 20:09 Urine Color Dark yellow (Yellow) Urine Appearance Clear (Clear) Urine pH 5.5 (5.0-9.0) Ur Specific [place] 1.028 (1.001-1.035) Urine Protein 1+ H (Negative) mg/dL Urine Glucose (UA) Negative (Negative) mg/dL
--- NOTE | 2024-07-19 12:53 | P.CONGS_ITS ---
Assessment and Plan Assessment and plan (1) Abdominal abscess: Status: Acute Assessment and Plan: CT scan of the abdomen and pelvis was reviewed with the Radiologist by Dr. Pierre and discussed with the patient in detail. There is evidence of small bowel wall thickening and inflammatory change with a few small abscesses in the mesentery. There is also diverticulosis with some wall thickening of the sigmoid colon that is within somewhat close approximation to the inflamed small bowel segment. It is difficult to determine if this originated from diverticulitis or small bowel enteritis or possibly undiagnosed inflammatory bowel disease. He is already clinically improving with IV antibiotics. His abdominal pain has improved and he has mild tenderness in the LLQ. He does not have any peritoneal signs and there is no indication for urgent surgical intervention at this time. The abscesses in the mesentery are small and will likely respond well to antibiotic therapy. We will consult GI for evaluation of the enteritis. We will also request records from [place] to help determine if his previous hospitalizations were similar to his current CT findings or if it was solely treatment for diverticulitis. We will continue to monitor with serial abdominal exams and labs. (2) Enteritis: Code(s): K52.9 - Noninfective gastroenteritis and colitis, unspecified Status: Acute Assessment and Plan: Continue IV antibiotics. GI consulted. (3) Colitis: Code(s): K52.9 - Noninfective gastroenteritis and colitis, unspecified Status: Acute Assessment and Plan: CT scan showed sigmoid diverticulosis with a segment of wall thickening in the sigmoid colon. He has a reported history of diverticulitis treated at [place]. His last colonoscopy was about 4-5 years ago. See plan above. Continue IV antibiotics. (4) Sepsis: Qualifiers: Sepsis acute organ dysfunction status: without acute organ dysfunction Sepsis type: sepsis due to unspecified organism Qualified Code(s): A41.9 - Sepsis, unspecified organism Code(s): A41.9 - Sepsis, unspecified organism Status: Acute Assessment and Plan: Leukocytosis and tachycardia present on admission, which both have improved. Likely secondary to enteritis/colitis with perforation and abscess as listed above. Continue IV antibiotics. (5) Heavy alcohol use: Code(s): F10.90 - Alcohol use, unspecified, uncomplicated Status: Acute Assessment and Plan: [facility] protocol in place to monitor for withdrawal. Management per Hospitalist. (6) Tobacco abuse: Code(s): Z72.0 - Tobacco use Status: Acute Assessment and Plan: Encouraged cessation. Plan I have discussed the patient's case and plan of care with Dr. Pierre. History of Present Illness Consult details Consult date: 07/19/24 Reason for consult: other (Contained small bowel perforation, enteritis) Requesting physician: Ranjith Arteaga MD Narrative: 54-year-old male with PMH of heavy alcohol use, tobacco abuse, and diverticulitis, who we have been asked to see in surgical consultation for contained small bowel perforation and enteritis. He reports being treated for diverticulitis about 3 times in the past 5-6 years. The last episode, he was admitted to [place] in December of 2023 and reportedly had an abscess. This was treated with antibiotics and he did not require percutaneous drainage. Reports improving with conservative management with all previous episodes. Denies a history of inflammatory bowel disease. He reportedly had a colonoscopy 4-5 years ago after 1 of his episodes of diverticulitis without any significant findings. This episode, started about 5 days ago. He noticed left lower quadrant abdominal pain, which is similar to previous episodes. He had 1 episode of vomiting on Friday and severe nausea all day Friday. Denies any hematochezia or melena. Denies fever chills. His last bowel movement was 3 days ago and reportedly small, but formed. Due to his persistent abdominal pain, he came into the ED for evaluation. [place] [address], CRP 13.1, and lactic acid 0.5. CT scan of the abdomen and pelvis showed a long segment of small bowel enteritis with contained perforation and adjacent small mesenteric abscesses with the largest measuring about 3.4 cm. There is also a moderate length of wall thickening of the sigmoid colon with surrounding inflammatory change, suggesting colitis. Differential includes infectious or ischemic enteritis /colitis, as well as cystitis verses urinary bladder wall thickening from incomplete distention. There is evidence of diverticulosis within the sigmoid colon. He is now seen on medical floor. He is already feeling quite a bit better. His abdominal pain has improved significantly. No nausea this morning. White blood cell count down to 15,900 today. No previous abdominal surgeries. Review of Systems 2 Review of Systems: All systems reviewed & are unremarkable except as noted in HPI and below PMFSH Past Medical History Medical History (Updated 07/19/24 @ 13:22 by TATI Conway) Heavy alcohol use Tobacco abuse Hypogonadism in male Adhesive capsulitis of left shoulder History of mixed drug abuse Quit in 1997 Diverticulitis Arthritis Anxiety Surgical History Surgical History History of tonsillectomy and adenoidectomy Family History Family History Grandparent Alcoholism in family member Pancreatic cancer Anxiety Depression Mother Anxiety Depression Heart problem Pre-diabetes Diverticulitis Grandparent Alcoholism in family member Cerebrovascular accident Social History Social History Social History: He and his have been since 2002. They have a 21-year-old son. He has smoked up to 1.5 packs of cigarettes per day since he was a teenager. He drinks 3 fingers (shots) of bourbon night. He has history of prior hallucinogen and marijuana use. He drinks large amounts of caffeine. He works at a [employer]. Code status: Full code Surrogate decision maker: Earlene Burden () Smoking packs per day: 1.25 Smoking cigarettes per day: 25.0 Years smoked: 40 Smoking pack-years: 50.00 Smoking status: Current every day smoker Tobacco type: cigarettes Alcohol intake: current Drinks per week: 21 Alcohol use details: 2-3 fingers of bourbon every night. 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 Gender identity (if verbalized by the patient): Female Sexual Orientation (if Verbalized by the Patient): Straight or Heterosexual Spiritual care concerns: No Agree to blood products: Yes Meds Home Medications and Allergies Home Medications ?Medication ?Instructions ?Recorded ?Confirmed ?Type multivitamin with minerals 4 tablet PO DAILY 07/30/23 07/19/24 History (Hair,Skin and Nails tablet) Allergies Allergy/AdvReac Type Severity Reaction Status Date / Time No Known Allergies Allergy Mild Unverified 07/19/24 02:19 Vital Signs Vital Signs - 24 hr 07/18/24 19:40 07/18/24 22:06 07/19/24 01:12 Temperature 97.3 F L Pulse Rate 112 H 80 86 Respiratory Rate 18 15 15 Blood Pressure 161/69 H 112/78 108/74 Pulse Oximetry 97 100 100 Oxygen Delivery Room Air 07/19/24 01:13 07/19/24 02:15 07/19/24 04:35 Temperature 97.2 F L 96.7 F L Pulse Rate 86 87 79 Respiratory Rate 15 18 18 Blood Pressure 108/74 118/75 107/62 Pulse Oximetry 99 99 95 Oxygen Delivery Exam 2 Const: General: comfortable and no acute distress Nutritional Appearance: t hin and underweight Orientation/consciousness: patient oriented x3 HENMT: Head: normocephalic and atraumatic Ears: hearing grossly normal bilaterally Mouth: Yes moist mucous membranes Eyes: General: appearance normal, both eyes and all related structures P upils: Equal, round and reactive pupils present Neck: Neck: normal visual inspection and full ROM Resp: Effort & Inspection: no respiratory distress Auscultation: clear to auscultation bilaterally Cardio: Rate: regular rate Rhythm: regular rhythm Peripheral pulses: P eripheral pulses 2+ throughout GI: Inspection: non-distended, no scars and no visible herniation GI Palp: Yes Soft to palpation, Yes Tenderness to palpation present (GI) (LLQ), No Guarding due to palpation present (GI), Yes No hepatosplenomegaly present and No Rebound tenderness present Percussion: Yes normal to percussion A uscultation: normal bowel sounds Skin: General skin exam: normal color Neuro: General: moves all extremities and no focal motor deficits Speech: n ormal speech Motor exam (neuro): 5/5 motor strength present throughout Extrem: General: normal to inspection and no edema Psych: Mental Status: mental status grossly normal Attitude: cooperative Insight: Good insight present (Psych) Judgement: Good judgement present (Psych) Results Labs 07/19/24 04:02 07/18/24 19:51 Labs: Abnormal lab results 03/07/18/24 07/19/24 Range/Units 19:51 20:09 03:51 WBC 18.0 H (4.5-10.0) K/mm3 Neut % (Auto) 77.3 H (45.5-73.1) % Lymph % (Auto) 15.6 L (18.3-44.2) % [place] # (Auto) 1.0 H (0.1-0.6) K/mm3 Abs Immat Gran (auto) 0.08 H (0.00-0.031) K/mm3 Absolute Neuts (auto) 13.9 H (1.3-6.7) K/mm3 PT (11.1-14.7) Seconds Glucose 122 H (65-110) mg/dL Lactic Acid (0.7-2.0) mmol/L Total Bilirubin 1.7 H (0.2-1.3) mg/dL C-Reactive Protein 13.1 H (<1.0) mg/dL Urine Protein 1+ H (Negative) mg/dL Urine Ketones 1+ H (Negative) mg/dL Urine Bilirubin 1+ H (Negative) 07/19/24 07/19/24 Range/Units 04:02 07:59 WBC 15.9 H (4.5-10.0) K/mm3 Neut % (Auto) 82.2 H (45.5-73.1) % Lymph % (Auto) 11.6 L (18.3-44.2) % [place] # (Auto) 0.8 H (0.1-0.6) K/mm3 Abs Immat Gran (auto) 0.08 H (0.00-0.031) K/mm3 Absolute Neuts (auto) 13.1 H (1.3-6.7) K/mm3 PT 15.3 H (11.1-14.7) Seconds Glucose (65-110) mg/dL Lactic Acid 0.5 L (0.7-2.0) mmol/L Total Bilirubin (0.2-1.3) mg/dL C-Reactive Protein (<1.0) mg/dL Urine Protein (Negative) mg/dL Urine Ketones (Negative) mg/dL Urine Bilirubin (Negative) Diabetes panel 07/18/24 Range/Units 19:51 Sodium 138 (137-145) mmol/L Potassium 4.1 (3.4-5.0) mmol/L Chloride 98 (98-107) mmol/L Carbon Dioxide 29 (22-30) mmol/L BUN 17 (9-20) mg/dL Creatinine 0.88 (0.7-1.3) mg/dL Glucose 122 H (65-110) mg/dL Calcium 9.9 (8.4-10.2) mg/dL AST 25 (17-59) U/L ALT 17 (6-50) U/L Alkaline Phosphatase 83 (38-126) U/L Total Protein 8.0 (6.3-8.2) g/dL Albumin 5.1 (3.5-5.1) g/dL Calcium panel 07/18/24 Range/Units 19:51 Calcium 9.9 (8.4-10.2) mg/dL Albumin 5.1 (3.5-5.1) g/dL Pituitary panel 07/18/24 Range/Units 19:51 Sodium 138 (137-145) mmol/L Potassium 4.1 (3.4-5.0) mmol/L Chloride 98 (98-107) mmol/L Carbon Dioxide 29 (22-30) mmol/L BUN 17 (9-20) mg/dL Creatinine 0.88 (0.7-1.3) mg/dL Glucose 122 H (65-110) mg/dL Calcium 9.9 (8.4-10.2) mg/dL Adrenal panel 07/18/24 Range/Units 19:51 Sodium 138 (137-145) mmol/L Potassium 4.1 (3.4-5.0) mmol/L Chloride 98 (98-107) mmol/L Carbon Dioxide 29 (22-30) mmol/L BUN 17 (9-20) mg/dL Creatinine 0.88 (0.7-1.3) mg/dL Glucose 122 H (65-110) mg/dL Calcium 9.9 (8.4-10.2) mg/dL Total Bilirubin 1.7 H (0.2-1.3) mg/dL AST 25 (17-59) U/L ALT 17 (6-50) U/L Alkaline Phosphatase 83 (38-126) U/L Total Protein 8.0 (6.3-8.2) g/dL Albumin 5.1 (3.5-5.1) g/dL All other labs normal. Imaging Additional studies: ITS Impressions Abdomen/Pelvis CT 07/18/24 21:14 IMPRESSION: Severe long segment small bowel enteritis with contained perforation and adjacent mesenteric abscesses. Moderate length segment of sigmoid colitis, with surrounding inflammatory change. Correlate for history of inflammatory bowel disease. Infectious or ischemic enteritis/colitis are also in the differential. Cystitis versus urinary bladder wall thickening from incomplete distention. Quality VTE Prophylaxis VTE prophylaxis: mechanical ordered and pharmacologic ordered
[2024-07-20 03:15] VITALS: BP 105/66
[2024-07-20] MEDS: PIPERACILLN/TAZ 3.375GM/NS50ML 3.375 GM/50 ML BAG IVPB ×3 (04:14→20:18)
[2024-07-20 05:20] VITALS: BP 93/53; PULSE 71; RESP 18; TEMP 37.1; O2SAT 97
[2024-07-20 05:51] LABS: Basophils Absolute Auto 0.1 K/mm3 (0.0-0.1); Basophils Percent Auto 0.5 % (0.2-1.2); Eosinophils Absolute Auto 0.2 K/mm3 (0-0.3); Eosinophils Percent Auto 1.5 % (0-4.4); Hematocrit 39.1 % (42.0-52.0); Immature Granulocyte Absolute 0.04 K/mm3 (0.00-0.031); Immature Granulocyte Percent A 0.4 % (0-0.5); Lymphocytes Absolute Auto 1.72 K/mm3 (0.9-3.2); Lymphocytes Percent Auto 15.8 % (18.3-44.2); Mean Corpuscular HGB Conc 33.2 g/dl (32-36); Mean Corpuscular Hemoglobin 31.3 pg (26-34); Mean Platelet Volume 9.2 fl (7.4-10.4); Monocytes Absolute Auto 0.7 K/mm3 (0.1-0.6); Neutrophils Absolute Auto 8.3 K/mm3 (1.3-6.7); Neutrophils Percent Auto 75.8 % (45.5-73.1); Platelet Count Result 142 k/mm3 (150-375); Red Blood Count 4.16 M/mm3 (4.6-6.20); Red Cell Distribution Width 12.7 % (11.5-14.5); White Blood Count 10.9 K/mm3 (4.5-10.0)
[2024-07-20 06:01] LABS: Anion Gap 4 mmol/L (4-12); Blood Urea Nitrogen 7 mg/dL (9-20); Calcium 8.5 mg/dL (8.4-10.2); Carbon Dioxide 26 mmol/L (22-30); Chloride 108 mmol/L (98-107); Estimated CRCL calculation 88 ml/min; Estimated Glomerular Filt Rate > 60; Glucose 125 mg/dL (65-110); Potassium 3.9 mmol/L (3.4-5.0); Sodium 138 mmol/L (137-145)
--- NOTE | 2024-07-20 07:30 | PM.IMPN ---
Progress Note: A&P Assessment and Plan (1) Sepsis: Qualifiers: Sepsis acute organ dysfunction status: without acute organ dysfunction Sepsis type: sepsis due to unspecified organism Qualified Code(s): A41.9 - Sepsis, unspecified organism Code(s): A41.9 - Sepsis, unspecified organism Status: Acute Assessment and Plan: Meets SIRS criteria: Tachycardia, Leukocytosis - Abd/Pelvis CT: Severe long segment small bowel enteritis with contained perforation and adjacent mesenteric abscesses. Moderate length segment of sigmoid colitis, with surrounding inflammatory change. Correlate for history of inflammatory bowel disease. Infectious or ischemic enteritis/colitis are also in the differential. Cystitis versus urinary bladder wall thickening from incomplete distention. - lactic acid: pending - IVF: LR 150mL/hr - suspected source: Abdominal abscess - blood cultures drawn on 07/19 - UA: 1+ protein, 1+ ketones, 1+ bilirubin, otherwise unremarkable - General surgery Consulted, no indication for surgery - Monitor sxs and blood work - Continue Zosyn (2) Abdominal abscess: Status: Acute Assessment and Plan: - Abd/Pelvis CT: Severe long segment small bowel enteritis with contained perforation and adjacent mesenteric abscesses. Moderate length segment of sigmoid colitis, with surrounding inflammatory change. Correlate for history of inflammatory bowel disease. Infectious or ischemic enteritis/colitis are also in the differential. Cystitis versus urinary bladder wall thickening from incomplete distention. - General Surgery consulted, see plan above - Continue Zosyn (3) Enteritis: Code(s): K52.9 - Noninfective gastroenteritis and colitis, unspecified Status: Acute Assessment and Plan: - Abd/Pelvis CT: Severe long segment small bowel enteritis with contained perforation and adjacent mesenteric abscesses. Moderate length segment of sigmoid colitis, with surrounding inflammatory change. - GI consulted, recommend 14-day course of Abx and colonoscopy in 6-8 weeks - Improving on IV Abx, monitor symptoms and daily CBC - Continue supportive care - Pt will need outpt colonoscopy (4) Tobacco abuse: Code(s): Z72.0 - Tobacco use Status: Acute Assessment and Plan: - Given nicotine patch 21mg daily (5) Heavy alcohol use: Code(s): F10.90 - Alcohol use, unspecified, uncomplicated Status: Acute Assessment and Plan: - denies history of ETOH withdrawal - Started on thiamine supplement - monitor CIWA Time Spent With Patient Time: 15-25 Subjective Date/time seen: 07/20/24 07:30 Interval history: 54-year-old male with a past medical history of heavy alcohol use and multiple prior hospitalizations for diverticulitis December 2023 who presented to the ER with 4 days of left lower abdominal pain. The patient reports that he has had for 5 episodes of diverticulitis over the last 6 years. 07/20/2024 Patient is sitting comfortably in bed at time of exam. He denies any CP, SOB, n/v at this time. Still has some lingering LLQ abdominal pain, but minimal and tolerable. Pt seen by GI before exam, informed like likely will need to stay until at least tomorrow, maybe the next day to continue IV antibiotics, trend WBC and trend symptoms. Pt otherwise comfortable and amenable to this plan. Also to start full liquid diet today with plans to advance tomorrow. Vitals stable, WBC improving, blood work stable or near baseline. Review of Systems Review of Systems: 12 systems were reviewed with pertinent positives and negatives per HPI. Except as documented in the HPI, all other systems were reviewed and are negative. Exam Narrative: Weight 60.8 kg BMI 17.7 Const: Other: No acute distress, thin body habitus, appears stated age, sitting up in the bed with knees drawn up and arms lying across his knees HENMT: Other: Mucous membranes are tacky, no oral pharyngeal erythema, dental caries noted, head is normocephalic atraumatic Eyes: Other: Pupils are equal and reactive, no scleral icterus, no conjunctival pallor Neck: Other: No lymphadenopathy, no thyromegaly Resp: Other: Clear to auscultation bilaterally, no increased work of breathing Cardio: Other: Regular rate, regular rhythm, 2+ bilateral radial pedal pulses GI: Other: No guarding, non tender, normoactive bowel sounds, nondistended, no organomegaly Skin: Other: Warm to touch, no jaundice, no pallor, multiple tattoos noted some of which around the dorsum of bilateral forearms Neuro: Other: Alert oriented, speech is clear, no facial asymmetry, no localizing neurologic deficits noted during the course of conversation Extrem: Other: No clubbing, cyanosis or edema, moves all extremities equally Psych: Other: Restless, flat affect, appropriate judgment and insight Objective Data Vital Signs Vital Signs: Vital Signs - 24 hr 07/19/24 14:00 07/19/24 20:00 07/19/24 20:00 Temperature 98.2 F Pulse Rate 79 79 Respiratory Rate 18 18 Blood Pressure 102/68 102/68 Pulse Oximetry 97 97 Oxygen Delivery Room Air 07/19/24 20:05 07/20/24 03:15 07/20/24 05:20 Temperature 97.4 F L 98.7 F Pulse Rate 65 71 Respiratory Rate 14 18 Blood Pressure 105/66 105/66 93/53 L Pulse Oximetry 97 97 Oxygen Delivery Intake/Output Intake/Output: Intake & Output 07/17/24 07/18/24 07/19/24 07/20/24 23:59 23:59 23:59 23:59 Intake Total 2049 1200 0 Balance 2049 1200 0 Meds/Results Medications: Active Medications Generic Name Dose Route Start Last Admin Trade Name Freq PRN Reason Stop Dose Admin Enoxaparin Sodium 40 mg 07/19/24 09:00 07/19/24 09:12 Enoxaparin 40 Mg/0.4 Ml Syringe SUB-Q 40 mg DAILY CLAUDIA Administration Hydromorphone HCl 0.5 mg 07/19/24 00:07 Hydromorphone Hcl Inj (*Crx) 2 Mg/Ml Vial IV PUSH Q3H PRN Pain Rated 7-10 Piperacillin/Tazobactam/Dextrose 3.375 gm in 50 mls @ 100 mls/hr 07/19/24 03:00 07/20/24 04:14 Zosyn 3.375 Gm/Ns 50 Ml IVPB 100 mls/hr Q6H CLAUDIA Administration Potassium Chloride/Dextrose/Sod Cl 1,000 mls @ 100 mls/hr 07/19/24 07:30 07/19/24 21:09 Kcl 20 Meq/D5/0.9% Sod Chl IV CONT 100 mls/hr .Q10H CLAUDIA Administration Nicotine 1 patch 07/19/24 02:49 Nicotine (*Pbkc) 21 Mg Patch TRANSDERM DAILY PRN Nicotine withdrawal Thiamine HCl 100 mg 07/19/24 09:00 07/19/24 09:12 Thiamine Hcl 200 Mg/2 Ml Vial IV PUSH 100 mg QAM CLAUDIA Administration Radiology Results: ITS Impressions Abdomen/Pelvis CT 07/18/24 21:14 IMPRESSION: Severe long segment small bowel enteritis with contained perforation and adjacent mesenteric abscesses. Moderate length segment of sigmoid colitis, with surrounding inflammatory change. Correlate for history of inflammatory bowel disease. Infectious or ischemic enteritis/colitis are also in the differential. Cystitis versus urinary bladder wall thickening from incomplete distention. Labs Labs: Laboratory Results - last 24 hr 07/19/24 07/19/24 07/20/24 03:51 07:59 05:29 WBC 10.9 H RBC 4.16 L Hgb 13.0 L Hct 39.1 L MCV 94.0 MCH 31.3 MCHC 33.2 RDW 12.7 Plt Count 142 L MPV 9.2 Immature Gran % (Auto) 0.4 Neut % (Auto) 75.8 H Lymph % (Auto) 15.8 L [place] % (Auto) 6.0 Eos % (Auto) 1.5 Baso % (Auto) 0.5 Lymph # (Auto) 1.72 [place] # (Auto) 0.7 H Eos # (Auto) 0.2 Baso # (Auto) 0.1 Abs Immat Gran (auto) 0.04 H Absolute Neuts (auto) 8.3 H Absolute Nucleated RBC 0.000 Nucleated RBC % 0.0 Sodium 138 Potassium 3.9 Chloride 108 H Carbon Dioxide 26 Anion Gap 4 BUN 7 L D Creatinine 0.69 L Estim Creat Clear Calc 88 Estimated GFR > 60 Glucose 125 H Lactic Acid 0.5 L Calcium 8.5 C-Reactive Protein 13.1 H Quality VTE Prophylaxis VTE prophylaxis: mechanical ordered and pharmacologic ordered
[2024-07-20] MEDS: THIAMINE HCL 200 MG/2 ML VIAL 100 MG IV PUSH (08:49)
[2024-07-20] MEDS: ENOXAPARIN 40 MG/0.4 ML SYRINGE SUB-Q (08:49)
[2024-07-20] MEDS: KCL 20 MEQ/D5/0.9% SOD CHL 1,000 ML 100 ML IV CONT (09:50)
--- NOTE | 2024-07-20 11:47 | PM.PNGS ---
Progress Note: A&P Assessment and Plan (1) Diverticulitis: Code(s): K57.92 - Diverticulitis of intestine, part unspecified, without perforation or abscess without bleeding Status: Acute Assessment and Plan: Responding to treatment much like diverticulitis. Still waiting for imaging and records from [place] regarding his previous admissions. Now pain free with only minimal lower abdominal tenderness. Will start on full liquid diet. If continues to improve, could probably go home tomorrow on 5 more days of Augmentin. I would see him in the office in roughly 2 weeks. He would also go home on a low-fiber diet. Repeat colonoscopy in 6-8 weeks after discharge. Consider elective sigmoidectomy. (2) Abdominal abscess: Status: Acute Assessment and Plan: Likely associated with diverticulitis (3) Tobacco abuse: Code(s): Z72.0 - Tobacco use Status: Chronic (4) Alcohol use: Code(s): Z78.9 - Other specified health status Status: Chronic Subjective Subjective Date/Time Seen: 07/20/24 11:47 Patient reports: no new complaints, feels better, pain is less (No abdominal pain), voiding w/o difficulty, no bowel movement and afebrile Exam GI: Inspection: normal to inspection, non-distended and scaphoid GI Palp: Yes Soft to palpation, Yes Tenderness to palpation present (GI) (Less tender, left suprapubic area still slightly tender), No Guarding due to palpation present (GI), No Hernia present and No Palpable mass present Auscultation: normal bowel sounds Objective Data Vital Signs Vital Signs: Vital Signs - 24 hr 07/19/24 14:00 07/19/24 20:00 07/19/24 20:00 Temperature 36.8 C Pulse Rate 79 79 Respiratory Rate 18 18 Blood Pressure 102/68 102/68 Pulse Oximetry 97 97 Oxygen Delivery Room Air 07/19/24 20:05 07/20/24 03:15 07/20/24 05:20 Temperature 36.3 C L 37.1 C Pulse Rate 65 71 Respiratory Rate 14 18 Blood Pressure 105/66 105/66 93/53 L Pulse Oximetry 97 97 Oxygen Delivery Intake/Output Intake/Output: Intake & Output 07/17/24 07/18/24 07/19/24 07/20/24 23:59 23:59 23:59 23:59 Intake Total 2050 1200 1050 Balance 2049 1200 1050 Meds/Results Medications: Active Medications Generic Name Dose Route Start Last Admin Trade Name Freq PRN Reason Stop Dose Admin Acetaminophen 500 mg 07/20/24 11:44 Acetaminophen 500 Mg Tablet PO Q6H PRN Pain Rated 1-3 Enoxaparin Sodium 40 mg 07/19/24 09:00 07/20/24 08:49 Enoxaparin 40 Mg/0.4 Ml Syringe SUB-Q 40 mg DAILY CLAUDIA Administration Hydromorphone HCl 0.5 mg 07/19/24 00:07 Hydromorphone Hcl Inj (*Crx) 2 Mg/Ml Vial IV PUSH Q3H PRN Pain Rated 7-10 Piperacillin/Tazobactam/Dextrose 3.375 gm in 50 mls @ 100 mls/hr 07/19/24 03:00 07/20/24 08:50 Zosyn 3.375 Gm/Ns 50 Ml IVPB 100 mls/hr Q6H CLAUDIA Administration Potassium Chloride/Dextrose/Sod Cl 1,000 mls @ 80 mls/hr 07/19/24 07:30 07/20/24 09:50 Kcl 20 Meq/D5/0.9% Sod Chl IV CONT 100 mls/hr .[id number] CLAUDIA Administration Nicotine 1 patch 07/19/24 02:49 Nicotine (*Pbkc) 21 Mg Patch TRANSDERM DAILY PRN Nicotine withdrawal Oxycodone/Acetaminophen 0.5 tablet 07/20/24 11:44 Oxycodone/Acetaminophen (*Crx) 5-325 Mg Tablet PO Q4H PRN Pain Rated 4-6 Thiamine HCl 100 mg 07/19/24 09:00 07/20/24 08:49 Thiamine Hcl 200 Mg/2 Ml Vial IV PUSH 100 mg QAM CLAUDIA Administration Radiology Results: ITS Impressions Abdomen/Pelvis CT 07/18/24 21:14 IMPRESSION: Severe long segment small bowel enteritis with contained perforation and adjacent mesenteric abscesses. Moderate length segment of sigmoid colitis, with surrounding inflammatory change. Correlate for history of inflammatory bowel disease. Infectious or ischemic enteritis/colitis are also in the differential. Cystitis versus urinary bladder wall thickening from incomplete distention. Labs Labs: Laboratory Results - last 24 hr 07/20/24 05:29 WBC 10.9 H RBC 4.16 L Hgb 13.0 L Hct 39.1 L MCV 94.0 MCH 31.3 MCHC 33.2 RDW 12.7 Plt Count 142 L MPV 9.2 Immature Gran % (Auto) 0.4 Neut % (Auto) 75.8 H Lymph % (Auto) 15.8 L [place] % (Auto) 6.0 Eos % (Auto) 1.5 Baso % (Auto) 0.5 Lymph # (Auto) 1.72 [place] # (Auto) 0.7 H Eos # (Auto) 0.2 Baso # (Auto) 0.1 Abs Immat Gran (auto) 0.04 H Absolute Neuts (auto) 8.3 H Absolute Nucleated RBC 0.000 Nucleated RBC % 0.0 Sodium 138 Potassium 3.9 Chloride 108 H Carbon Dioxide 26 Anion Gap 4 BUN 7 L D Creatinine 0.69 L Estim Creat Clear Calc 88 Estimated GFR > 60 Glucose 125 H Calcium 8.5
--- NOTE | 2024-07-20 12:46 | WPDGIPROGNO ---
Progress Note: A&P Assessment and Plan (1) Diverticulitis: Code(s): K57.92 - Diverticulitis of intestine, part unspecified, without perforation or abscess without bleeding Status: Acute Plan The patient demonstrates excellent recovery from acute diverticulitis, responding favorably to the prescribed antibiotic regimen. He is tolerating a gradual advancement in his diet. Surgical consultation is ongoing, and discharge is expected within the next 24-48 hours to facilitate completion of the antibiotic course in an outpatient setting. As discussed with the patient yesterday, he will undergo a colonoscopy in approximately 6-8 weeks. Given the frequency and severity of his diverticulitis episodes, elective sigmoidectomy is strongly recommended. Subjective Date/time seen: 07/20/24 12:46 Interval history: Patient doing better, almost pain free. Tolerating diet very well. No fever. White count tending to decrease. Exam GI: Inspection: normal to inspection, non-distended and scaphoid GI Palp: Yes Soft to palpation, Yes Tenderness to palpation present (GI) (Less tender, left suprapubic area still slightly tender), No Guarding due to palpation present (GI), No Hernia present and No Palpable mass present Auscultation: normal bowel sounds Objective Data Vital Signs Vital Signs: Vital Signs - 24 hr 07/19/24 14:00 07/19/24 20:00 07/19/24 20:00 Temperature 98.2 F Pulse Rate 79 79 Respiratory Rate 18 18 Blood Pressure 102/68 102/68 Pulse Oximetry 97 97 Oxygen Delivery Room Air 07/19/24 20:05 07/20/24 03:15 07/20/24 05:20 Temperature 97.4 F L 98.7 F Pulse Rate 65 71 Respiratory Rate 14 18 Blood Pressure 105/66 105/66 93/53 L Pulse Oximetry 97 97 Oxygen Delivery 07/20/24 08:45 Temperature Pulse Rate Respiratory Rate Blood Pressure Pulse Oximetry Oxygen Delivery Room Air Intake/Output Intake/Output: Intake & Output 07/17/24 07/18/24 07/19/24 07/20/24 23:59 23:59 23:59 23:59 Intake Total 2049 1200 1311.7 Balance 2049 1200 1311.7 Meds/Results Medications: Active Medications Generic Name Dose Route Start Last Admin Trade Name Freq PRN Reason Stop Dose Admin Acetaminophen 500 mg 07/20/24 11:44 Acetaminophen 500 Mg Tablet PO Q6H PRN Pain Rated 1-3 Enoxaparin Sodium 40 mg 07/19/24 09:00 07/20/24 08:49 Enoxaparin 40 Mg/0.4 Ml Syringe SUB-Q 40 mg DAILY CLAUDIA Administration Hydromorphone HCl 0.5 mg 07/19/24 00:07 Hydromorphone Hcl Inj (*Crx) 2 Mg/Ml Vial IV PUSH Q3H PRN Pain Rated 7-10 Piperacillin/Tazobactam/Dextrose 3.375 gm in 50 mls @ 100 mls/hr 07/19/24 03:00 07/20/24 09:20 Zosyn 3.375 Gm/Ns 50 Ml IVPB Infused Q6H CLAUDIA Infusion Potassium Chloride/Dextrose/Sod Cl 1,000 mls @ 80 mls/hr 07/19/24 07:30 07/20/24 11:57 Kcl 20 Meq/D5/0.9% Sod Chl IV CONT 80 mls/hr .[id number] CLAUDIA Infusion Nicotine 1 patch 07/19/24 02:49 Nicotine (*Pbkc) 21 Mg Patch TRANSDERM DAILY PRN Nicotine withdrawal Oxycodone/Acetaminophen 0.5 tablet 07/20/24 11:44 Oxycodone/Acetaminophen (*Crx) 5-325 Mg Tablet PO Q4H PRN Pain Rated 4-6 Thiamine HCl 100 mg 07/19/24 09:00 07/20/24 08:49 Thiamine Hcl 200 Mg/2 Ml Vial IV PUSH 100 mg QAM CLAUDIA Administration Radiology Results: ITS Impressions Abdomen/Pelvis CT 07/18/24 21:14 IMPRESSION: Severe long segment small bowel enteritis with contained perforation and adjacent mesenteric abscesses. Moderate length segment of sigmoid colitis, with surrounding inflammatory change. Correlate for history of inflammatory bowel disease. Infectious or ischemic enteritis/colitis are also in the differential. Cystitis versus urinary bladder wall thickening from incomplete distention. Labs Labs: Laboratory Results - last 24 hr 07/20/24 05:29 WBC 10.9 H RBC 4.16 L Hgb 13.0 L Hct 39.1 L MCV 94.0 MCH 31.3 MCHC 33.2 RDW 12.7 Plt Count 142 L MPV 9.2 Immature Gran % (Auto) 0.4 Neut % (Auto) 75.8 H Lymph % (Auto) 15.8 L [place] % (Auto) 6.0 Eos % (Auto) 1.5 Baso % (Auto) 0.5 Lymph # (Auto) 1.72 [place] # (Auto) 0.7 H Eos # (Auto) 0.2 Baso # (Auto) 0.1 Abs Immat Gran (auto) 0.04 H Absolute Neuts (auto) 8.3 H Absolute Nucleated RBC 0.000 Nucleated RBC % 0.0 Sodium 138 Potassium 3.9 Chloride 108 H Carbon Dioxide 26 Anion Gap 4 BUN 7 L D Creatinine 0.69 L Estim Creat Clear Calc 88 Estimated GFR > 60 Glucose 125 H Calcium 8.5
[2024-07-20 14:00] VITALS: BP 108/63; PULSE 78; RESP 18; TEMP 37.3; O2SAT 99
[2024-07-20 20:45] VITALS: BP 118/78; PULSE 72; RESP 18; TEMP 37.1; O2SAT 98
[2024-07-20] MEDS: KCL 20 MEQ/D5/0.9% SOD CHL 1,000 ML 80 ML IV CONT (22:00)
[2024-07-21] MEDS: PIPERACILLN/TAZ 3.375GM/NS50ML 3.375 GM/50 ML BAG IVPB ×2 (03:20→07:44)
[2024-07-21 05:30] VITALS: BP 114/74; PULSE 73; RESP 16; TEMP 36.6; O2SAT 99
[2024-07-21 06:20] LABS: Basophils Absolute Auto 0.1 K/mm3 (0.0-0.1); Basophils Percent Auto 0.6 % (0.2-1.2); Eosinophils Absolute Auto 0.3 K/mm3 (0-0.3); Eosinophils Percent Auto 3.9 % (0-4.4); Hematocrit 39.4 % (42.0-52.0); Hemoglobin 13.1 g/dL (14.0-18.0); Immature Granulocyte Absolute 0.02 K/mm3 (0.00-0.031); Immature Granulocyte Percent A 0.3 % (0-0.5); Lymphocytes Absolute Auto 1.83 K/mm3 (0.9-3.2); Lymphocytes Percent Auto 23.5 % (18.3-44.2); Mean Corpuscular HGB Conc 33.2 g/dl (32-36); Mean Corpuscular Hemoglobin 31.3 pg (26-34); Mean Platelet Volume 9.3 fl (7.4-10.4); Monocytes Absolute Auto 0.6 K/mm3 (0.1-0.6); Neutrophils Percent Auto 63.7 % (45.5-73.1); Platelet Count Result 153 k/mm3 (150-375); Red Blood Count 4.19 M/mm3 (4.6-6.20); Red Cell Distribution Width 12.4 % (11.5-14.5); White Blood Count 7.8 K/mm3 (4.5-10.0)
[2024-07-21 06:30] LABS: Anion Gap 5 mmol/L (4-12); Blood Urea Nitrogen 4 mg/dL (9-20); Calcium 8.7 mg/dL (8.4-10.2); Carbon Dioxide 30 mmol/L (22-30); Chloride 104 mmol/L (98-107); Estimated CRCL calculation 82 ml/min; Estimated Glomerular Filt Rate > 60; Glucose 109 mg/dL (65-110); Potassium 3.7 mmol/L (3.4-5.0); Sodium 139 mmol/L (137-145)
--- NOTE | 2024-07-21 07:25 | WPDGIPROGNO ---
Progress Note: A&P Assessment and Plan (1) Diverticulitis: Code(s): K57.92 - Diverticulitis of intestine, part unspecified, without perforation or abscess without bleeding Status: Acute Assessment and Plan: As previously discussed, patient will need a colonoscopy in 6-8 weeks to document diverticulitis versus inflammatory bowel disease, which is very unlikely. After that, the patient will likely need an elective sigmoidectomy to avoid recurrence of diverticulitis. He should complete 14 days of antibiotics and is probably in a condition to be discharged today. Surgery evaluation pending. Subjective Date/time seen: 07/21/24 07:25 Interval history: the patient is doing better, no abdominal pain no fever. His white count is down to normal today. Review of Systems Review of Systems: All systems reviewed & are unremarkable except as noted in HPI and below Exam Narrative: Abdomen: Soft, nontender, nondistended, no rebound. Rest of the exam unchanged. Objective Data Vital Signs Vital Signs: Vital Signs - 24 hr 07/20/24 08:45 07/20/24 14:00 07/20/24 20:45 Temperature 99.2 F 98.7 F Pulse Rate 78 72 Respiratory Rate 18 18 Blood Pressure 108/63 118/78 Pulse Oximetry 99 98 Oxygen Delivery Room Air 07/21/24 05:30 Temperature 97.8 F Pulse Rate 73 Respiratory Rate 16 Blood Pressure 114/74 Pulse Oximetry 99 Oxygen Delivery Intake/Output Intake/Output: Intake & Output 07/18/24 07/19/24 07/20/24 07/21/24 23:59 23:59 23:59 23:59 Intake Total 2049 1200 2150.0 300 Balance 2049 1200 2150.0 300 Meds/Results Medications: Active Medications Generic Name Dose Route Start Last Admin Trade Name Freq PRN Reason Stop Dose Admin Acetaminophen 500 mg 07/20/24 11:44 Acetaminophen 500 Mg Tablet PO Q6H PRN Pain Rated 1-3 Enoxaparin Sodium 40 mg 07/19/24 09:00 07/20/24 08:49 Enoxaparin 40 Mg/0.4 Ml Syringe SUB-Q 40 mg DAILY CLAUDIA Administration Hydromorphone HCl 0.5 mg 07/19/24 00:07 Hydromorphone Hcl Inj (*Crx) 2 Mg/Ml Vial IV PUSH Q3H PRN Pain Rated 7-10 Piperacillin/Tazobactam/Dextrose 3.375 gm in 50 mls @ 100 mls/hr 07/19/24 03:00 07/21/24 03:20 Zosyn 3.375 Gm/Ns 50 Ml IVPB 100 mls/hr Q6H CLAUDIA Administration Potassium Chloride/Dextrose/Sod Cl 1,000 mls @ 80 mls/hr 07/19/24 07:30 07/20/24 22:00 Kcl 20 Meq/D5/0.9% Sod Chl IV CONT 80 mls/hr .[id number] CLADUIA Administration Nicotine 1 patch 07/19/24 02:49 Nicotine (*Pbkc) 21 Mg Patch TRANSDERM DAILY PRN Nicotine withdrawal Oxycodone/Acetaminophen 0.5 tablet 07/20/24 11:44 Oxycodone/Acetaminophen (*Crx) 5-325 Mg Tablet PO Q4H PRN Pain Rated 4-6 Thiamine HCl 100 mg 07/19/24 09:00 07/20/24 08:49 Thiamine Hcl 200 Mg/2 Ml Vial IV PUSH 100 mg QAM CLAUDIA Administration Radiology Results: ITS Impressions Abdomen/Pelvis CT 07/18/24 21:14 IMPRESSION: Severe long segment small bowel enteritis with contained perforation and adjacent mesenteric abscesses. Moderate length segment of sigmoid colitis, with surrounding inflammatory change. Correlate for history of inflammatory bowel disease. Infectious or ischemic enteritis/colitis are also in the differential. Cystitis versus urinary bladder wall thickening from incomplete distention. Labs Labs: Laboratory Results - last 24 hr 07/21/24 05:48 WBC 7.8 RBC 4.19 L Hgb 13.1 L Hct 39.4 L MCV 94.0 MCH 31.3 MCHC 33.2 RDW 12.4 Plt Count 153 MPV 9.3 Immature Gran % (Auto) 0.3 Neut % (Auto) 63.7 Lymph % (Auto) 23.5 [place] % (Auto) 8.0 Eos % (Auto) 3.9 Baso % (Auto) 0.6 Lymph # (Auto) 1.83 [place] # (Auto) 0.6 Eos # (Auto) 0.3 Baso # (Auto) 0.1 Abs Immat Gran (auto) 0.02 Absolute Neuts (auto) 5.0 Absolute Nucleated RBC 0.000 Nucleated RBC % 0.0 Sodium 139 Potassium 3.7 Chloride 104 Carbon Dioxide 30 Anion Gap 5 BUN 4 L Creatinine 0.75 Estim Creat Clear Calc 82 Estimated GFR > 60 Glucose 109 Calcium 8.7
[2024-07-21] MEDS: THIAMINE HCL 200 MG/2 ML VIAL 100 MG IV PUSH (07:43)
[2024-07-21] MEDS: ENOXAPARIN 40 MG/0.4 ML SYRINGE SUB-Q (07:44)
--- NOTE | 2024-07-21 10:24 | PCNFU ---
Nutrition Follow-Up Complete: Inadequate energy intake related to NPO status as evidenced by current diet orders Goal:Diet order PO intake 75% pt meeting goal, new goal of diet advancement to regular diet Pt current nutrition is Full liquids, Ensure Enlive BID. Nutrition recommendation: advance diet as tolerated to regular/low fiber Last recorded weight is 60.8 kg. Bowel Motility: +BM 4/2 Labs Reviewed: Hgb:13.1, HCt:39.4 Meds Noted: thiamin, lovenox, KCL Skin: WNL Additional Notes: Pt diet advanced to full liquids, intake 100%, tolerating. Recommend to advance diet. Monitor diet orders, intake, wt, labs. Follow up in 3 days.
--- NOTE | 2024-07-21 10:44 | P.PNGS_ITS ---
Progress Note: A&P Assessment and Plan (1) Diverticulitis: Code(s): K57.92 - Diverticulitis of intestine, part unspecified, without perforation or abscess without bleeding Status: Acute Assessment and Plan: Responding to treatment much like diverticulitis. No abdominal pain or tenderness on exam today. He is surgically stable for discharge on another 5 days of Augmentin and a low fiber diet. Will have him follow-up with Dr. Pierre in 2 weeks and possible elective sigmoidectomy can be discussed as an outpatient as this episode is resolving. Repeat colonoscopy in 6-8 weeks after discharge. (2) Abdominal abscess: Status: Acute Assessment and Plan: Likely associated with diverticulitis (3) Tobacco abuse: Code(s): Z72.0 - Tobacco use Status: Chronic (4) Alcohol use: Code(s): Z78.9 - Other specified health status Status: Chronic Subjective Subjective Date/Time Seen: 07/21/24 10:44 Patient reports: no new complaints, feels better and afebrile Interval history: No abdominal pain. Tolerating low fiber diet. He has slight tenderness in the LLQ when coughing, but otherwise is tolerating activity without any pain. Exam Const: General: comfortable and no acute distress GI: Inspection: non-distended GI Palp: Yes Soft to palpation, No Tenderness to palpation present (GI), No Guarding due to palpation present (GI) and No Rebound tenderness present Auscultation: normal bowel sounds Objective Data Vital Signs Vital Signs: Vital Signs - 24 hr 07/20/24 14:00 07/20/24 20:45 07/21/24 05:30 Temperature 99.2 F 98.7 F 97.8 F Pulse Rate 78 72 73 Respiratory Rate 18 18 16 Blood Pressure 108/63 118/78 114/74 Pulse Oximetry 99 98 99 Oxygen Delivery 07/21/24 08:00 Temperature Pulse Rate Respiratory Rate Blood Pressure Pulse Oximetry Oxygen Delivery Room Air Intake/Output Intake/Output: Intake & Output 07/18/24 07/19/24 07/20/24 07/21/24 23:59 23:59 23:59 23:59 Intake Total 2049 1200 2150.0 400 Balance 2049 1200 2150.0 400 Meds/Results Medications: Active Medications Generic Name Dose Route Start Last Admin Trade Name Freq PRN Reason Stop Dose Admin Acetaminophen 500 mg 07/20/24 11:44 Acetaminophen 500 Mg Tablet PO Q6H PRN Pain Rated 1-3 Enoxaparin Sodium 40 mg 07/19/24 09:00 07/21/24 07:44 Enoxaparin 40 Mg/0.4 Ml Syringe SUB-Q 40 mg DAILY CLAUDIA Administration Hydromorphone HCl 0.5 mg 07/19/24 00:07 Hydromorphone Hcl Inj (*Crx) 2 Mg/Ml Vial IV PUSH Q3H PRN Pain Rated 7-10 Piperacillin/Tazobactam/Dextrose 3.375 gm in 50 mls @ 100 mls/hr 07/19/24 03:00 07/21/24 08:14 Zosyn 3.375 Gm/Ns 50 Ml IVPB Infused Q6H CLAUDIA Infusion Potassium Chloride/Dextrose/Sod Cl 1,000 mls @ 80 mls/hr 07/19/24 07:30 07/20/24 22:00 Kcl 20 Meq/D5/0.9% Sod Chl IV CONT 80 mls/hr .[id number] CLAUDIA Administration Nicotine 1 patch 07/19/24 02:49 Nicotine (*Pbkc) 21 Mg Patch TRANSDERM DAILY PRN Nicotine withdrawal Oxycodone/Acetaminophen 0.5 tablet 07/20/24 11:44 Oxycodone/Acetaminophen (*Crx) 5-325 Mg Tablet PO Q4H PRN Pain Rated 4-6 Thiamine HCl 100 mg 07/19/24 09:00 07/21/24 07:43 Thiamine Hcl 200 Mg/2 Ml Vial IV PUSH 100 mg QAM CLAUDIA Administration Radiology Results: ITS Impressions Abdomen/Pelvis CT 07/18/24 21:14 IMPRESSION: Severe long segment small bowel enteritis with contained perforation and adjacent mesenteric abscesses. Moderate length segment of sigmoid colitis, with surrounding inflammatory change. Correlate for history of inflammatory bowel disease. Infectious or ischemic enteritis/colitis are also in the differential. Cystitis versus urinary bladder wall thickening from incomplete distention. Labs Labs: Laboratory Results - last 24 hr 07/21/24 05:48 WBC 7.8 RBC 4.19 L Hgb 13.1 L Hct 39.4 L MCV 94.0 MCH 31.3 MCHC 33.2 RDW 12.4 Plt Count 153 MPV 9.3 Immature Gran % (Auto) 0.3 Neut % (Auto) 63.7 Lymph % (Auto) 23.5 [place] % (Auto) 8.0 Eos % (Auto) 3.9 Baso % (Auto) 0.6 Lymph # (Auto) 1.83 [place] # (Auto) 0.6 Eos # (Auto) 0.3 Baso # (Auto) 0.1 Abs Immat Gran (auto) 0.02 Absolute Neuts (auto) 5.0 Absolute Nucleated RBC 0.000 Nucleated RBC % 0.0 Sodium 139 Potassium 3.7 Chloride 104 Carbon Dioxide 30 Anion Gap 5 BUN 4 L Creatinine 0.75 Estim Creat Clear Calc 82 Estimated GFR > 60 Glucose 109 Calcium 8.7
--- NOTE | 2024-07-21 12:52 | PM.DS ---
DS: Admitting Diagnosis Discharge Date 07/21/2024 Admitting Diagnosis Diverticulitis DS: Discharge Diagnosis Discharge Diagnosis (1) Sepsis: Qualifiers: Sepsis acute organ dysfunction status: without acute organ dysfunction Sepsis type: sepsis due to unspecified organism Qualified Code(s): A41.9 - Sepsis, unspecified organism Code(s): A41.9 - Sepsis, unspecified organism Status: Acute Assessment and Plan: Meets SIRS criteria: Tachycardia, Leukocytosis - Abd/Pelvis CT: Severe long segment small bowel enteritis with contained perforation and adjacent mesenteric abscesses. Moderate length segment of sigmoid colitis, with surrounding inflammatory change. Correlate for history of inflammatory bowel disease. Infectious or ischemic enteritis/colitis are also in the differential. Cystitis versus urinary bladder wall thickening from incomplete distention. - lactic acid: pending - IVF: LR 150mL/hr - suspected source: Abdominal abscess - blood cultures drawn on 07/19 - UA: 1+ protein, 1+ ketones, 1+ bilirubin, otherwise unremarkable - General surgery Consulted, no indication for surgery - Monitor sxs and blood work - Continue Zosyn (2) Abdominal abscess: Status: Acute Assessment and Plan: - Abd/Pelvis CT: Severe long segment small bowel enteritis with contained perforation and adjacent mesenteric abscesses. Moderate length segment of sigmoid colitis, with surrounding inflammatory change. Correlate for history of inflammatory bowel disease. Infectious or ischemic enteritis/colitis are also in the differential. Cystitis versus urinary bladder wall thickening from incomplete distention. - General Surgery consulted, see plan above - Continue Zosyn (3) Enteritis: Code(s): K52.9 - Noninfective gastroenteritis and colitis, unspecified Status: Acute Assessment and Plan: - Abd/Pelvis CT: Severe long segment small bowel enteritis with contained perforation and adjacent mesenteric abscesses. Moderate length segment of sigmoid colitis, with surrounding inflammatory change. - GI consulted, recommend 14-day course of Abx and colonoscopy in 6-8 weeks - Improving on IV Abx, monitor symptoms and daily CBC - Continue supportive care - Pt will need outpt colonoscopy (4) Tobacco abuse: Code(s): Z72.0 - Tobacco use Status: Chronic Assessment and Plan: - Given nicotine patch 21mg daily (5) Heavy alcohol use: Code(s): F10.90 - Alcohol use, unspecified, uncomplicated Status: Acute Assessment and Plan: - denies history of ETOH withdrawal - Started on thiamine supplement - monitor CIWA DS: Summary Hospital Course Hospital Course: Patient is a 54-year-old male with a past medical history of alcohol use, and diverticulitis who presented the ED with complaints of lower abdominal pain. CT of the abdomen pelvis was performed showed a long segment of bowel enteritis inflammation with perforation and adjacent mesenteric abscess within additional possible colitis patient was initiated on Zosyn which has been continued until discharge. GI was consulted and recommended that the patient have a surgery consult. Patient was placed on Augmentin per GIs recommendations in surgery did consult in. Patient will need to follow up with surgery to schedule an elective sigmoidectomy. Patient is also been gradually increased on diet. Blood cultures were obtained and are negative currently. Patient was also placed on CIWA protocol with thiamine and folic acid. Currently patient is doing well he denies any chest pain, shortness a breath, nausea, vomiting, diarrhea constipation. At this time patient is stable for discharge labs and vital signs. Did explain to the patient about the strict low-fiber diet and the antibiotics which he did verbalize understanding. Did talk to surgery as well who is coordinating follow-up. Status at Discharge Functional status at discharge: independent ambulation Overall status at discharge: patient is progressing back to baseline Time Spent with Patient Time attestation: Total time spent providing and/or coordinating discharge services:48 minutes Time spent: Greater than 30 minutes Specific discharge activities: Diagnostic testing, chart review, developing a treatment plan, education, care coordination documentation, physical exam, result review Exam Narrative: General: well-nourished, well-appearing 54-year-old female, sitting up in bed, comfortable, NARD Neuro: awake, alert and oriented x4, speech clear, no focal neuro deficits noted HEENMT: normocephalic, atraumatic, EOMI, sclerae anicteric, moist oral mucosa Respiratory: Clear to auscultation bilaterally without crackles, rhonchi or wheezes, nonlabored breathing Cardio: regular rate, regular rhythm with S1-S2 Abdomen: nondistended, normoactive bowel sounds, soft, nontender to palpation Extremities: no edema, erythema, or tenderness to palpation, DP pulses 2+ bilaterally Skin: no rashes or lesions, warm and dry Psych: appropriate mood and affect, judgment and insight intact DS: Data Data Completed and Pending Labs on day of discharge: Labs from last 24 hours 07/21/24 05:48 WBC 7.8 RBC 4.19 L Hgb 13.1 L Hct 39.4 L MCV 94.0 MCH 31.3 MCHC 33.2 RDW 12.4 Plt Count 153 MPV 9.3 Immature Gran % (Auto) 0.3 Neut % (Auto) 63.7 Lymph % (Auto) 23.5 [place] % (Auto) 8.0 Eos % (Auto) 3.9 Baso % (Auto) 0.6 Lymph # (Auto) 1.83 [place] # (Auto) 0.6 Eos # (Auto) 0.3 Baso # (Auto) 0.1 Abs Immat Gran (auto) 0.02 Absolute Neuts (auto) 5.0 Absolute Nucleated RBC 0.000 Nucleated RBC % 0.0 Sodium 139 Potassium 3.7 Chloride 104 Carbon Dioxide 30 Anion Gap 5 BUN 4 L Creatinine 0.75 Estim Creat Clear Calc 82 Estimated GFR > 60 Glucose 109 Calcium 8.7 Preliminary micro results at discharge 07/19/24 04:02 Blood Culture - Preliminary Blood 07/19/24 04:02 Blood Culture - Preliminary Blood Discharge Plan Discharge Attending physician on discharge: Bentley Starks Consulting providers: Suraj Pierre Discharging Clinician: Lennox Salvador Patient Disposition: Home, Self-Care Activity: may shower and as tolerated Diet: low fiber Discharge Instructions: Discharge disposition: home Take medications as prescribed Stick to a low fiber diet Complete the course of antibiotics Follow up with general surgery in 2 weeks. Call to schedule an appointment with Dr. Pierre. [phone] If you experience any chest pain, shortness of breath, fevers >100.4 or any other worrisome symptoms follow up with PCP or come back to the ED Follow-up with the primary care physician within 1-2 weeks Thank you for [facility] for your healthcare needs Patient Instructions: Antibiotic Form, Amoxicillin/Clavulanate Potassium (By mouth), Low Fiber Diet (DC) Patient Language: Kinyarwanda Stand Alone Forms: General Discharge Information Follow-up/Referrals: Suraj Pierre MD [Physician] - 2 Weeks (Call Dr. Asher office to make follow-up appointment.) Discharge Medications: New amoxicillin-pot clavulanate 875-125 mg tablet 1 tablet PO Q12H Qty: 10 0RF Discontinued Hair,Skin and Nails Tablet 4 tablet PO DAILY Patient Comments: Frankie Reeves (Nutrafol hair supplement-online) Date of admission: 07/19/24 01:12 Primary Care Provider: Francesco Andrade Admitting Provider: Radha Higuera Attending physician on admission: Trey Farmer Condition: Stable Quality VTE Prophylaxis VTE prophylaxis: pharmacologic ordered Hospitalist MIPS Heart Failure (Exclusion) Patient has history of Heart Transplant or Left Ventricular Assistive Device?: No IF YES, STOP HERE Heart Failure (Qualifier) Patient has current or prior documentation of LVEF less than or equal to 40%, or mod/servere depressed LVSF?: No IF NO, STOP HERE
== END 2024-07-21 13:50 | disposition home or self-care (01) | DRG 871 ==
LOC: ANHED 07-19 01:20 → ANH3MEDSUR 07-19 01:50
PROVIDERS: Physician Assistant; Surgery; Admitting Provider Internal Medicine; Emergency Provider Emergency Medicine; PCP Internal Medicine; Visit Provider Nurse Practitioner
DX: A41.9 Sepsis, unspecified organism (principal); K65.1 Peritoneal abscess; K57.20 Diverticulitis of large intestine with perforation and abscess without bleeding; K52.9 Noninfective gastroenteritis and colitis, unspecified; F10.90 Alcohol use, unspecified, uncomplicated; F17.210 Nicotine dependence, cigarettes, uncomplicated; M19.90 Unspecified osteoarthritis, unspecified site
CPT/HCPCS: 36415; 74177; 80048; 80053; 81001; 83605; 83690; 85025; 85610; 85730; 86140; 87040; 96361; 96365; 96375; 99285; J1171; J1650; J2405; J2543; J3411; J3480; J7030; J7120; Q9967

== ENCOUNTER 2024-10-25 00:19 | Day surgery (SDC) | payer BC, SELFPAY ==
[2024-10-01 11:43] VITALS: BMI 17.6
--- OUTSIDE RECORDS SUMMARY | 2024-10-25 00:21 | XMS_ITS | Clinical Summary ---
Author Organization [facility] Address [address] [place] [id number] Phone Care Team Providers Care Director Of Conservation Name Role Phone Unavailable Primary Care Provider [...] 5:42 PM CDT Height 185.4 cm (6' 1) 10/04/2020 5:42 PM CDT Body Mass Index 19.13 10/04/2020 5:42 PM CDT Plan of Treatment Health Maintenance Due Date Last Done Comments DTAP/TDAP/TD VACCINES (1 - Tdap) 07/08/1987 HEPATITIS B VACCINES (1 of 3 - 19+ 3-dose series) 06/19 COLORECTAL SCREENING 2013 Colorectal Cancer Screening 2013 FIT-DNA Q 3 years 2013 FIT/FOBT Q 1 year 2013 Flex Sig/CT Colonography Q 5 years 2013 ZOSTER VACCINE (1 of 2) 2018 INFLUENZA VACCINE (#1) 2024
[2024-10-25 12:32] VITALS: BP 96/65; PULSE 67; RESP 16; TEMP 36.7; O2SAT 99; BMI 16.6
--- NOTE | 2024-10-25 12:42 | P.PNAN_ITS ---
Anes - Initial Pre Proc Eval Procedure: Operation Date: 10/25/24 14:00 Proposed Procedures p Esophagogastroduodenoscopy & Colonoscopy - Cornelio Mar MD Date/Time: 10/25/24 12:42 Surgeon: Cornelio Mar MD Pre Op Diagnosis: Diverticulitis of large intestine with perforation Patient Data Age: 54 Gender: M Height: 1.83 m Weight: 55.7 kg Last Vital Signs Temp 98.1 F 10/25/24 12:32 Pulse 67 10/25/24 12:32 Resp 16 10/25/24 12:32 BP 96/65 L 10/25/24 12:32 Pulse Ox 99 10/25/24 12:32 O2 Del Method Room Air 10/25/24 12:32 Allergies Allergy/AdvReac Type Severity Reaction Status Date / Time No Known Allergies Allergy Mild Verified 10/25/24 12:31 Home Medications ?Medication ?Instructions ?Recorded ?Confirmed ?Type No Home Medications 08/09/24 10/01/24 History Patient hx anesthesia problems: none Family hx anesthesia problems: none Results Review: All pre-operative results and documents have been reviewed as part of the pre- operative evaluation. [facility] Past Medical History Medical History Heavy alcohol use Tobacco abuse Hypogonadism in male Adhesive capsulitis of left shoulder History of mixed drug abuse Quit in 1997 Diverticulitis Arthritis Anxiety Surgical History Surgical History History of tonsillectomy and adenoidectomy Family History Family History Grandparent Alcoholism in family member Pancreatic cancer Anxiety Depression Mother Anxiety Depression Heart problem Pre-diabetes Diverticulitis Grandparent Alcoholism in family member Cerebrovascular accident Social History Social History Social History: He and his have been since 2002. They have a 21-year-old son. He has smoked up to 1.5 packs of cigarettes per day since he was a teenager. He drinks 3 fingers (shots) of bourbon night. He has history of prior hallucinogen and marijuana use. He drinks large amounts of caffeine. He works at a [employer]. Code status: Full code Surrogate decision maker: Earlene Burden () Smoking packs per day: 1.25 Smoking cigarettes per day: 25.0 Years smoked: 40 Smoking pack-years: 50.00 Smoking status: Current every day smoker Tobacco type: cigarettes Alcohol intake: current Drinks per week: 21 Alcohol use details: 2-3 fingers of bourbon every night. 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 Gender identity (if verbalized by the patient): Female Sexual Orientation (if Verbalized by the Patient): Straight or Heterosexual Spiritual care concerns: No Agree to blood products: Yes Anes - Eval Final PreProcedure Day of Procedure 10/25/24 12:42 Patient weight: thin Heart: regular rate and rhythm Lungs: clear to auscultation Airway: Mallampati scale class II Neurological: alert and oriented Last oral intake: >/= 8 hours ASA classification: III Emergent: no Anesthetic plan: proceed Anesthesia type and monitoring: general GIVS and standard monitoring Results Review: All pre-operative results and documents have been reviewed as part of the pre- operative evaluation. Informed Consent: The patient's anesthetic plan and its attendant risks and benefits were discussed with the patient/family/POA. Questions were solicited and answers provided to the satisfaction of the patient/family/POA.
[2024-10-25] MEDS: LACTATED RINGERS 1,000 ML 150 ML IV CONT (12:46)
[2024-10-25] MEDS: SIMETHICONE ORAL SUSPENSION 20 MG/0.3 ML 30 ML BOTTLE 1.8 ML PO (12:46)
--- NOTE | 2024-10-25 13:11 | PM.IMHP ---
H&P: HPI History of Present Illness Date/Time: 10/25/24 13:11 Chief Complaint: GERD-history of diverticulitis Narrative: the patient has intermittent episodes of heartburn , and was recently admitted for an episode of diverticulitis, his 5th one. He is here for EGD and colonoscopy. Review of Systems Review of Systems: All systems reviewed & are unremarkable except as noted in HPI and below PMFSH Past Medical History Medical History Heavy alcohol use Tobacco abuse Hypogonadism in male Adhesive capsulitis of left shoulder History of mixed drug abuse Quit in 1997 Diverticulitis Arthritis Anxiety Surgical History Surgical History History of tonsillectomy and adenoidectomy Family History Family History Grandparent Alcoholism in family member Pancreatic cancer Anxiety Depression Mother Anxiety Depression Heart problem Pre-diabetes Diverticulitis Grandparent Alcoholism in family member Cerebrovascular accident Social History Social History Social History: He and his have been since 2002. They have a 21-year-old son. He has smoked up to 1.5 packs of cigarettes per day since he was a teenager. He drinks 3 fingers (shots) of bourbon night. He has history of prior hallucinogen and marijuana use. He drinks large amounts of caffeine. He works at a [employer]. Code status: Full code Surrogate decision maker: Earlene Burden () Smoking packs per day: 1.25 Smoking cigarettes per day: 25.0 Years smoked: 40 Smoking pack-years: 50.00 Smoking status: Current every day smoker Tobacco type: cigarettes Alcohol intake: current Drinks per week: 21 Alcohol use details: 2-3 fingers of bourbon every night. 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 Gender identity (if verbalized by the patient): Female Sexual Orientation (if Verbalized by the Patient): Straight or Heterosexual Spiritual care concerns: No Agree to blood products: Yes Meds Home Medications and Allergies Home Medications ?Medication ?Instructions ?Recorded ?Confirmed ?Type No Home Medications 08/09/24 10/01/24 History Allergies Allergy/AdvReac Type Severity Reaction Status Date / Time No Known Allergies Allergy Mild Verified 10/25/24 12:31 Vital Signs Vital Signs - 24 hr 10/25/24 12:32 Temperature 98.1 F Pulse Rate 67 Respiratory Rate 16 Blood Pressure 96/65 L Pulse Oximetry 99 Oxygen Delivery Room Air Exam Const: General: cooperative and healthy appearing Resp: Effort & Inspection: normal respiratory effort and able to speak in complete sentences Auscultation: clear to auscultation bilaterally Cardio: Rate: regular rate Rhythm: regular rhythm GI: Inspection: normal to inspection GI Palp: No No hepatosplenomegaly present Auscultation: normal bowel sounds Rectal Exam: deferred Skin: General skin exam: normal color Psych: Appearance: grossly normal Mental Status: mental status grossly normal Assessment and Plan Assessment and plan (1) Diverticulitis of large intestine with abscess: Qualifiers: Diverticulitis bleeding: without bleeding Qualified Code(s): K57.20 - Diverticulitis of large intestine with perforation and abscess without bleeding Code(s): K57.20 - Diverticulitis of large intestine with perforation and abscess without bleeding Status: Acute Assessment and Plan: The patient is deemed a good candidate for the procedures. Consent signed. Will proceed. (2) GERD (gastroesophageal reflux disease): Code(s): K21.9 - Gastro-esophageal reflux disease without esophagitis Status: Acute
[2024-10-25] MEDS: BENZOCAINE (*SP) 60 ML SPRAY CAN (HURRICAINE) 1 SPRAY MUCOUS MEM (13:19)
--- NOTE | 2024-10-25 13:24 | S_PTH ---
PATIENT: Joseph Burden LOC: [facility] U#:[id number] AGE/SX: 54/M ROOM: RE10/25/[address]: Cornelio Mar MD : 1970 BED: DIS: 10/25/2024 SPEC #: [id number] RECD: 10/25/24 14:28 STATUS: ERICA REQ #: [id number] [place]: 10/25/24 13:[address]: Cornelio Mar DEPT: [facility] Surgical RECD BY: Erin Robles ENTERED: 10/25/24 14:28 SP TYPE: Surgical OTHR DR: Francesco Andrade DO Tissues: A - Gastric Biopsy B - Gastric Biopsy Procedures: Hematoxylin and Eosin Stain Gross and Microscopic Level 4
--- NOTE | 2024-10-25 13:26 | SUR.OPER ---
EGD [id number] COLONOSCOPY [id number]
[2024-10-25 13:44] VITALS: BP 116/72; PULSE 56; RESP 19; O2SAT 100
[2024-10-25 13:54] VITALS: BP 103/72; PULSE 60; RESP 16; O2SAT 96
[2024-10-25 14:04] VITALS: BP 124/76; PULSE 60; RESP 16; O2SAT 100
== END 2024-10-25 14:20 | disposition home or self-care (01) ==
PROVIDERS: PCP Internal Medicine; Referring Provider Surgery; Visit Provider Internal Medicine Gastroenterology
PROC: 0DJ08ZZ Inspection of Upper Intestinal Tract, Via Natural or Artificial Opening Endoscopic (ICD-10-PCS; CPT 45378; principal; 2024-10-25 14:00)
DX: K21.9 Gastro-esophageal reflux disease without esophagitis (principal); K57.30 Diverticulosis of large intestine without perforation or abscess without bleeding; K29.30 Chronic superficial gastritis without bleeding; E29.1 Testicular hypofunction; F41.9 Anxiety disorder, unspecified; M19.90 Unspecified osteoarthritis, unspecified site; F17.210 Nicotine dependence, cigarettes, uncomplicated; Z98.890 Other specified postprocedural states; Z80.0 Family history of malignant neoplasm of digestive organs; Z82.49 Family history of ischemic heart disease and other diseases of the circulatory system
CPT/HCPCS: 43239; 45378; 88305; J2003; J2704; J7120

== ENCOUNTER 2024-12-24 07:42 | Outpatient (CLI) | payer BC, SELFPAY ==
--- NOTE | ~2024-12-24 | XR_ITS ---
EXAMINATION: XR chest 2V DATE: 12/24/2024 09:12 INDICATION: Diverticulitis without perforation TECHNIQUE: PA and lateral views of the chest were obtained. COMPARISON: Chest radiograph dated 03/26/2008 FINDINGS: The lungs remain clear with no focal airspace opacities, pulmonary edema, pleural effusion or pneumothorax. The cardiomediastinal silhouette is normal. Mild thoracic spondylosis with minimal anterior wedging of a few mid thoracic vertebral bodies. IMPRESSION: 1. No acute cardiopulmonary disease. Reviewed, dictated and finalized at location A.
--- OUTSIDE RECORDS SUMMARY | 2024-12-24 07:52 | XMS_ITS | Clinical Summary ---
Author Organization [facility] Address [address] [place] [phone] Phone Care Team Providers Care Mobile Lounge Driver Name Role Phone Unavailable Primary Care Provider [...]
--- NOTE | 2024-12-24 08:34 | ECG_ITS ---
Test Date: 2024-12-24 08:49:43 Measurements Intervals [facility] Rate: 46 P: 87 MA: 180 QRS: -52 QRSD: 94 T: 78 QT: 408 QTc: 357 Interpretive Statements SINUS BRADYCARDIA MARKED LEFT AXIS DEVIATION [QRS AXIS < -30] ANTEROSEPTAL MYOCARDIAL INFARCTION [40+ ms Q WAVE IN V1-V4], OF INDETERMINATE AGE No previous ECG available for comparison Electronically Signed On 12-24-2024 12:38:54 CDT by Lisnadro Castillo M.D.
[2024-12-24 09:18] LABS: Hematocrit 43.7 % (42.0-52.0); Hemoglobin 14.5 g/dL (14.0-18.0); Immature Granulocyte Percent A 0.4 % (0-0.5); Lymphocytes Absolute Auto 3.04 K/mm3 (0.9-3.2); Mean Corpuscular HGB Conc 33.2 g/dl (32-36); Mean Corpuscular Hemoglobin 30.7 pg (26-34); Mean Corpuscular Volume 92.4 fl (80-100); Nucleated Red Blood Cells Absolute Auto 0.000 K/mm3 (0.0-0.012); Nucleated Red Blood Cells Perc 0.0 % (0.0-0.2); Platelet Count Result 190 k/mm3 (150-375); Red Blood Count 4.73 M/mm3 (4.6-6.20); White Blood Count 7.3 K/mm3 (4.5-10.0)
[2024-12-24 09:37] LABS: Anion Gap 7 mmol/L (4-12); Blood Urea Nitrogen 22 mg/dL (9-20); Calcium 9.7 mg/dL (8.4-10.2); Carbon Dioxide 30 mmol/L (22-30); Chloride 101 mmol/L (98-107); Estimated Glomerular Filt Rate > 60; Glucose 96 mg/dL (65-110); Potassium 4.3 mmol/L (3.4-5.0); Sodium 138 mmol/L (137-145)
[2024-12-24 10:13] LABS: Carcinoembryonic Antigen 3.2 ng/mL (0.0-3.0)
== END 2024-12-24 07:43 | disposition home or self-care (01) ==
LOC: ANHSURGERY 07:49
PROVIDERS: PCP Internal Medicine; Visit Provider Surgery
DX: R94.31 Abnormal electrocardiogram [ECG] [EKG] (principal); K57.20 Diverticulitis of large intestine with perforation and abscess without bleeding
CPT/HCPCS: 36415; 71046; 80048; 82378; 85025; 86850; 86900; 86901; 93005

== ENCOUNTER 2024-12-28 17:25 | Inpatient (IN) | payer BC, SELFPAY ==
--- NOTE | 2024-12-24 07:49 | PC.NURSE ---
Report to the Outpatient Waiting Room, entrance under the green pavilion located off [facility], at time __9 am on date _12/28/24 . Planned Procedure Time: __11am .? Time changes happen often and if your time is changed the preop area will call you the afternoon before. - You and your visitor will be asked to self-screen and do not enter if you have any COVID symptoms. Please call surgeon if you need to reschedule. - A mask is optional within the hospital at this time. Patients may have clear liquids (water, carbonated beverages, clear teas, apple juice) until 3 hours prior to surgery( 8 am) with a maximum of 20 ounces. - No food from midnight until time of surgery and no smoking, or chewing tobacco (or any form of nicotine). No chewing gum, candy or mints. - Take only the following medications with a SIP of water on the morning of surgery: ____NONE DO NOT STOP ANY OF YOUR OTHER PRESCRIPTION MEDICATIONS PRIOR TO SURGERY EXCEPT THE FOLLOWING Hold all vitamins and supplements for 3 days per anesthesiologist. Medications to discontinue per physician __NONE CHLORHEXIDINE CLEANSER DAY BEFORE SURGERY AND MORNING OF SURGERY BOWEL PREP PER DR MONTALVO ENSURE BUNDLE PACK PER DR MONTALVO Please no make-up, nail telugu, hairspray, perfume, deodorant, or body powder the day of surgery.? No jewelry (including any body piercings) or valuables the day of surgery, leave them at home.? Please take a shower or bath the night before, or the morning of, surgery with an antibacterial soap.? Wear comfortable, loose fitting clothing.? Children are encouraged to wear pajamas. - Jewelry must be removed prior to entering the operating room.? Rings and piercings that are not removed may be cut off. - The hospital will not accept responsibility for valuables.? - Please leave all valuables, including medications, at home the day of surgery. If you are going home after surgery, a licensed otr hazmat company driver must drive you home.? - NO public transportation without another adult if you receive anesthesia. - We recommend that an adult stay with you for 24 hours following discharge. - We also recommend that you do not drive, make important decision, drink alcoholic beverages, or take any drugs that were not prescribed by your health care provider for at least 24 hours after your discharge time. Follow any additional instructions given to you from your surgeon. VERBAL AND WRITTEN instructions given to __PATIENT AND KIM and asked if any additional questions and then verbalized understanding. Patient advised to call surgeon office or pre surgery nurse liaison [phone] if any additional questions.
[2024-12-24 07:52] VITALS: BMI 16.7
[2024-12-24 08:33] VITALS: BP 112/71; PULSE 55; RESP 18; TEMP 36.6; O2SAT 100
--- NOTE | 2024-12-27 13:05 | PM.IMHP ---
H&P: HPI History of Present Illness Date/Time: 12/27/24 13:05 Chief Complaint: abdominal pain Narrative: Patient is a 54 yo man who has had to be hospitalized for diverticulitis at least 5 times in the last 6 years, some were at [place]. He was admitted with diverticulitis here in July. After recovery from the acute episode, he underwent colonoscopy and EGD October 25, 2024. These showed diverticulosis and gastritis respectively. He continues to have postprandial crampy pain in the LLQ about 20 minutes after eating. He is admitted now, after home bowel preparation, for hand access laparoscopic sigmoidectomy. Review of Systems Review of Systems: All systems reviewed & are unremarkable except as noted in HPI and below (HPI) PMFSH Past Medical History Medical History Heavy alcohol use Tobacco abuse Hypogonadism in male Adhesive capsulitis of left shoulder History of mixed drug abuse Quit in 1997 Diverticulitis Arthritis Anxiety Surgical History Surgical History Hx of colonoscopy 10/25/2024 History of tonsillectomy and adenoidectomy Family History Family History Grandparent Alcoholism in family member Pancreatic cancer Anxiety Depression Mother Anxiety Depression Heart problem Pre-diabetes Diverticulitis Grandparent Alcoholism in family member Cerebrovascular accident Social History Social History Social History: He and his have been since 2002. They have a 21-year-old son. He has smoked up to 1.5 packs of cigarettes per day since he was a teenager. He drinks 3 fingers (shots) of bourbon night. He has history of prior hallucinogen and marijuana use. He drinks large amounts of caffeine. He works at a [employer]. Code status: Full code Surrogate decision maker: Earlene Burden () Smoking packs per day: 1.25 Smoking cigarettes per day: 25.0 Years smoked: 40 Smoking pack-years: 50.00 Smoking status: Former smoker Tobacco type: cigarettes Smoking end date: 11/29/24 Alcohol intake: current Drinks per week: 7 Alcohol use details: SHOT OF BOUR[place]ON Substance use: former Substance use type: does not use Other substance usage details: HALLUCINOGEN AND MARIJUANA Last use: 1997 Do You Feel Safe in your Home?: Yes Lack of Transportation: No Lack of Food: Never True Current Housing: I Have Housing Concerned About Future Housing: No Difficulty Paying Gas/Electric Bills: No Difficulty Paying for Meds: No Currently Unemployed: No Education: High School Diploma/GED Difficulty w/ Childcare or Family Care: No Living arrangements: with family Occupation/Education: occupation 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 Gender identity (if verbalized by the patient): Female Sexual Orientation (if Verbalized by the Patient): Straight or Heterosexual Spiritual care concerns: No Agree to blood products: Yes Meds Home Medications and Allergies Home Medications ?Medication ?Instructions ?Recorded ?Confirmed ?Type ciprofloxacin HCl 500 mg tablet 500 mg PO .COMPLEX #1 tablet 11/11/24 12/24/24 Rx metronidazole 500 mg tablet 500 mg PO .COMPLEX #3 tabs 11/11/24 12/24/24 Rx Allergies Allergy/AdvReac Type Severity Reaction Status Date / Time No Known Allergies Allergy Mild Verified 12/24/24 07:53 Exam Const: General: cooperative, comfortable, no acute distress, alert and awake Nutritional Appearance: thin and underweight Orientation/consciousness: patient oriented x3 HENMT: Head: normocephalic and atraumatic Mouth: Yes Normal oral and palatal mucosa present Eyes: Conjunctivae: conjunctivae normal Pupils: Equal, round and reactive pupils present EOM: EOMs intact bilaterally Neck: Neck: normal visual inspection, no lymphadenopathy and nontender Resp: Effort & Inspection: normal respiratory effort Auscultation: clear to auscultation bilaterally Cardio: Rate: regular rate Rhythm: regular rhythm Heart sounds: no gallops, no murmurs and no rubs GI: Inspection: normal to inspection, non-distended, scaphoid, no scars and no visible herniation GI Palp: Yes Soft to palpation, Yes Tenderness to palpation present (GI) (LLQ), No Guarding due to palpation present (GI), No Hepatomegaly present and No Splenomegaly present Skin: Lesions: no lesions Rashes: no rashes Neuro: General: no focal motor deficits and CN's II-XI intact bilaterally Cranial nerves: Yes Equal, round and reactive pupils present, Yes Bilaterally intact EOM present, Yes facial symmetry and Yes Midline tongue present Speech: normal speech Motor exam (neuro): 5 motor strength present throughout and Motor abnormalities not present Extrem: General: no clubbing, cyanosis or edema and edema Psych: Affect: normal affect Thought process: Normal thought process present Insight: Good insight present (Psych) Assessment and Plan Assessment and plan (1) Diverticulitis: Code(s): K57.92 - Diverticulitis of intestine, part unspecified, without perforation or abscess without bleeding Status: Chronic Assessment and Plan: Multiple recurrences, last one in July was with abscess. Colonoscopy negative for polyp or malignancy. Still having abdominal cramps 20min after eating likely due to chronic diverticular stricture. Plan to go ahead with BISHOP sigmoidectomy with anastomosis. Patient has had full discussion in hospital and again in office. Risks, benefits, usual recovery time and potential for anastomotic leak or other infection discussed. Possibility of colostomy or ileostomy discussed. All questions answered, he agrees to proceed. (2) Tobacco abuse: Code(s): Z72.0 - Tobacco use Status: Chronic Assessment and Plan: Patient has stopped smoking for 30days and will continue cessation at least another 30 days. (3) Alcohol use: Code(s): Z78.9 - Other specified health status Status: Chronic Assessment and Plan: nightly 3 fingers of bourbon
[2024-12-28] VITALS (12 sets, daily range): BP systolic 94–126; BP diastolic 55–87; PULSE 60–86; RESP 10–20; TEMP 36.2–36.5; O2SAT 93–100
--- NOTE | ~2024-12-28 | CT_ITS ---
EXAMINATION: CTA chest PE abdomen pel DATE: 12/29/2024 08:11 INDICATION: Shortness of breath and abrupt abdominal pain post colon resection one day prior TECHNIQUE: Computed tomography (CT) pulmonary angiogram of the chest was performed with 100 mL Omnipaque-350 intravenous contrast. Additional 3D reconstructions utilizing coronal maximum intensity projection (MIP) were performed. CT of the abdomen and pelvis was performed with intravenous contrast utilizing the same contrast bolus following a short delay. Automated exposure control and iterative reconstruction technique were employed. The dose-length product was 345.39 mGy-cm. COMPARISON: CT abdomen and pelvis dated 07/18/2024 FINDINGS: Chest: No pulmonary embolism. Mild emphysema with mild biapical pleural-parenchymal scarring. There is mild dependent atelectasis in both lungs. There are a few indeterminate pulmonary nodules in the bilateral lower lobes largest both the left and right measuring 5 mm and which are unchanged since 07/18/2024. No pneumonia, pulmonary edema, pleural effusion or pneumothorax. Heart size is normal. No pericardial effusion. Thoracic aorta is normal in caliber with no dissection. No pathologically enlarged thoracic lymphadenopathy. Mild thoracic spondylosis. There is a small amount of scattered soft tissue gas along the right chest wall extending to the axilla likely related to reported recent surgery. Abdomen/pelvis: There is additional postoperative soft tissue gas along the anterior abdominal wall, in the extraperitoneal soft tissues in the pelvis and additional small amount of free intraperitoneal gas in the nondependent upper abdomen. No free intraperitoneal fluid or abscess. Liver, gallbladder, spleen, pancreas, bilateral adrenal glands and left kidney are normal. 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 Bladder is normal. Prostatomegaly measuring 4.5 x 3.4 cm. Multiple phleboliths in the pelvis. Postoperative changes with likely sigmoid colon resection with anastomotic suture line near the rectosigmoid junction. There is additional likely small bowel anastomotic suture line in the anteroinferior right pelvis. No bowel obstruction. No pathologically enlarged abdominal or pelvic lymphadenopathy. Mild lumbar spondylosis. IMPRESSION: 1. Changes consistent with recent bowel surgery with anastomotic suture lines at the rectosigmoid junction and in the distal small bowel and scattered free intraperitoneal, extraperitoneal and body wall gas. No evident abscess or free intraperineal fluid. 2. Mild emphysema. No pulmonary embolism or other acute cardiopulmonary disease. 3. No change in a couple indeterminate 5 mm pulmonary nodules in the bilateral lower lobes. Could consider optional follow-up chest CT at 12 months. 4. 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 Reviewed, dictated and finalized at location A. IMPRESSION: 1. Changes consistent with recent bowel surgery with anastomotic suture lines a t the rectosigmoid junction and in the distal small bowel and scattered free in traperitoneal, extraperitoneal and body wall gas. No evident abscess or free in traperineal fluid. 2. Mild emphysema. No pulmonary embolism or other acute cardiopulmonary disease . 3. No change in a couple indeterminate 5 mm pulmonary nodules in the bilateral lower lobes. Could consider optional follow-up chest CT at 12 months. 4. Misshapen orthotopic right pelvic kidney with suggestion of at least partial ly duplicated right renal collecting system.
--- NOTE | ~2024-12-28 | XR_ITS ---
Examination: XR chest 2V Clinical History: SOB abrupt onset, COPD Comparison: 12/24/2024 Technique: PA and Lateral Findings: Cardiomediastinal silhouette normal size and configuration. Lungs clear. No acute bony abnormality. Free intraperitoneal air. IMPRESSION: 1. No acute cardiopulmonary findings. 2. Free intraperitoneal air, presumably recent surgery. Reviewed, dictated and finalized at location R.
--- OUTSIDE RECORDS SUMMARY | 2024-12-28 00:14 | XMS_ITS | Clinical Summary ---
Author Organization [facility] Address [address] [place] [phone] Phone Care Team Providers Care Processing Engineer Name Role Phone Unavailable Primary Care Provider [...]
[2024-12-28] MEDS: LACTATED RINGERS 1,000 ML 30 ML IV CONT ×2 (09:30→15:30)
[2024-12-28] MEDS: ACETAMINOPHEN 500 MG TABLET 1000 MG PO (09:48)
[2024-12-28] MEDS: ALVIMOPAN 12 MG CAPSULE PO (09:49)
[2024-12-28] MEDS: KETOROLAC 15 MG/ML VIAL (*BKC) IV PUSH (09:49)
--- NOTE | 2024-12-28 10:10 | P.PNAN_ITS ---
Anes - Initial Pre Proc Eval Procedure: Operation Date: 12/28/24 11:00 Proposed Procedures p Hand Assisted Laparoscopic Sigmoidectomy - Suraj Pierre MD Date/Time: 12/28/24 10:10 Surgeon: Suraj Pierre MD Pre Op Diagnosis: diverticulitis Patient Data Age: 54 Gender: M Height: 1.85 m Weight: 54.2 kg Last Vital Signs Temp 36.5 C 12/28/24 09:51 Pulse 86 12/28/24 09:51 Resp 16 12/28/24 09:51 BP 94/59 L 12/28/24 09:51 Pulse Ox 100 12/28/24 09:51 O2 Del Method Room Air 12/28/24 09:51 Allergies Allergy/AdvReac Type Severity Reaction Status Date / Time No Known Allergies Allergy Mild Verified 12/28/24 09:47 Home Medications ?Medication ?Instructions ?Recorded ?Confirmed ?Type ciprofloxacin HCl 500 mg tablet 500 mg PO .COMPLEX #1 tablet 11/11/24 12/28/24 Rx metronidazole 500 mg tablet 500 mg PO .COMPLEX #3 tabs 11/11/24 12/28/24 Rx Patient hx anesthesia problems: none Family hx anesthesia problems: none Results Review: All pre-operative results and documents have been reviewed as part of the pre- operative evaluation. [facility] Past Medical History Medical History Heavy alcohol use Tobacco abuse Hypogonadism in male Adhesive capsulitis of left shoulder History of mixed drug abuse Quit in 1997 Diverticulitis Arthritis Anxiety Surgical History Surgical History Hx of colonoscopy 10/25/2024 History of tonsillectomy and adenoidectomy Family History Family History Grandparent Alcoholism in family member Pancreatic cancer Anxiety Depression Mother Anxiety Depression Heart problem Pre-diabetes Diverticulitis Grandparent Alcoholism in family member Cerebrovascular accident Social History Social History Social History: He and his have been since 2002. They have a 2 1-year-old son. He has smoked up to 1.5 packs of cigarettes per day since he was a teenager. He drinks 3 fingers (shots) of bourbon night. He has history of prior hallucinogen and marijuana use. He drinks large amounts of caffeine. He works at a [employer]. Code status: Full code Surrogate decision maker: Earlene Burden () Smoking packs per day: 1.25 Smoking cigarettes per day: 25.0 Years smoked: 40 Smoking pack-years: 50.00 Smoking status: Former smoker Tobacco type: cigarettes Smoking end date: 11/29/24 Alcohol intake: current Drinks per week: 21 Alcohol use details: 2-3 fingers of bourbon every night. 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 Gender identity (if verbalized by the patient): Female Sexual Orientation (if Verbalized by the Patient): Straight or Heterosexual Spiritual care concerns: No Agree to blood products: Yes Anes - Eval Final PreProcedure Day of Procedure 12/28/24 10:10 Patient weight: normal Heart: regular rate and rhythm Lungs: clear to auscultation Airway: Mallampati scale class 1 and special considerations poor dentition Neurological: alert and oriented Last oral intake: >/= 8 hours ASA classification: III Emergent: no Anesthetic plan: proceed Anesthesia type and monitoring: general ETT and standard monitoring Results Review: All pre-operative results and documents have been reviewed as part of the pre-operative evaluation. Informed Consent: The patient's anesthetic plan and its attendant risks and benefits were discussed with the patient/family/POA. Questions were solicited and answers provided to the satisfaction of the patient/family/POA.
--- NOTE | 2024-12-28 10:44 | WPDHPUPDATE1 ---
History and Physical Update Update Date/Time: 12/28/24 10:44 History and Physical has been reviewed, including an updated exam of the patient. There are NO changes in the patient's condition. Risks, benefits, and alternatives have been discussed and questions answered. Patient agrees to proceed with procedure.
[2024-12-28] MEDS: ceFAZolin 2 GM in SODIUM CHLORIDE 0.9% IV 50 ML 100 ML IVPB (10:58)
[2024-12-28] MEDS: metroNIDAZOLE 500 MG/ISO 100ML 500 MG/100 ML BAG 100 MG IVPB (11:19)
[2024-12-28] MEDS: BUPIVACAINE/EPINEPHRINE 0.5% 50 ML VIAL 60 ML INFILTRATE (12:18)
[2024-12-28] MEDS: METHYLENE BLUE 0.5% INJ 10 ML AMPULE 20 ML IRRIGATION (13:12)
--- NOTE | 2024-12-28 13:19 | S_PTH ---
PATIENT: Joseph Burden LOC: [id number] U#:[id number] AGE/SX: 54/M ROOM: 309 RE12/28/[address]: Suraj Pierre MD : 1970 BED: 01 DIS: 12/31/2024 SPEC #: [id number] RECD: 12/29/24 07:55 STATUS: SOUMitra REQ #: [id number] [place]: 12/28/24 13:[address]: Suraj Pierre DEPT: [facility] Surgical RECD BY: Erin Robles ENTERED: 12/29/24 07:55 SP TYPE: Surgical OTHR DR: Francesco Andrade DO Tissues: A - Colon Segment NonTumor B - Colon Segment NonTumor Procedures: Hematoxylin and Eosin Stain Gross and Microscopic Level 5
--- NOTE | 2024-12-28 15:25 | W.PM.PROC2 ---
Procedure Note - Detailed Date of Procedure 12/28/24 Pre-op Diagnosis diverticulitis Post-op Diagnosis Same (Diverticulitis, enteroenteric fistula) Procedure Performed hand access laparoscopic sigmoidectomy with 25 EEA colorectal anastomosis, small-bowel resection Surgeon Suraj Pierre MD Sculpture Conservator Will Cheung D.O. Anesthesia General and Local Indications patient has had multiple episodes of diverticulitis requiring hospital care. He had an episode in July associated with abscess. He continues to have crampy abdominal pain 20 minutes after eating. He had an EGD and colonoscopy in October. The EGD showed gastritis. The colonoscopy showed diverticulosis. After discussion, he is taken to surgery now for hand access laparoscopic sigmoidectomy. Findings There were extensive and sometimes dense adhesions of the sigmoid colon to the left lateral pelvic sidewall, ileum, and urinary bladder. The ileum, about 30 cm before the ileocecal valve, also had dense adhesions to the urinary bladder concerning for a fistula. There were additional dense adhesions between a loop ileum very suggestive of a fistula. There was no fat wrapping to suggest Crohn's disease. The area of diverticulitis was in the distal sigmoid. About 20 cm of ileum containing the suspicious adhesion or fistula was also resected and sent as a specimen. Description of Procedure Patient was taken to surgery and induced into general anesthesia. He was placed in lithotomy with Jarett stirrups. Erazo catheter was placed. Rectal irrigation and rectal tube were placed. The abdomen is prepped and draped. The hand access port was placed in the midline just below the umbilicus. Local was infiltrated prior to the incision. Incision was made and dissection was carried down to the midline fascia. Additional local was infiltrated. The fascia was then opened in the midline and the peritoneum was opened. We extended the incision the length of the wound. The Anshul wound guard was then placed in the abdomen. The GelPort was placed. With the hand in the abdomen, 11 mm ports were placed in the right upper abdomen, midline upper abdomen, and left upper abdomen. The initial right-sided port was placed with my hand as a backstop to avoid injury. The other 2 were placed under direct visualization. Patient was placed in Trendelenburg. Patient was very thin and is peritoneal cavity was small. We began the surgery by dividing the lateral peritoneal attachments to the distal descending colon. The LigaSure was used for this and was used for nearly all of the dissection. Cautery was also used occasionally when the bowel was able to be eviscerated per the hand access port. I then found the left ureter and carefully dissected it until it was evident it would be well out of the way of our sigmoid dissection. We then continued to mobilize the distal descending and upper sigmoid. These adhesions became much more dense in the pelvis. There were obvious sigmoid and small bowel adhesions to the urinary bladder. These impaired our ability to mobilize more of the sigmoid colon safely. We then turned our attention to the sigmoid and small intestinal adhesions to the urinary bladder. I started with the sigmoid adhesions which were on the patient's left and, using the LigaSure, carefully exposed these adhesions and divided the sigmoid from the urinary bladder. This worked adequately in the sigmoid adhesions were taken down. We next encountered the small bowel adhesions. These were much more dense. At 1 point, I was concerned there was an Enterovesical fistula. I carefully took down this dense adhesion to the bladder. I then brought up this loop of small intestine and removed the GelPort so that it could be examined directly per the hand access opening. there was no evidence of small bowel injury. Looked at the sigmoid colon and it also appeared to be free of any injury. We then filled the urinary bladder with 400 cc of saline colored with methylene blue dye. This distended the urinary bladder significantly and no evidence of bladder perforation was noted. We then allowed the bladder to drain into the Erazo catheter and decompress. I freed any remaining attachments to the sigmoid colon of the distal ileum that had been adherent to the bladder and sigmoid colon. I then began carefully taking down adhesions of the ileum. All of these were able to be taken down except 1 very dense adhesion that appeared to be a fistula. Rather than risk bowel perforation, I went ahead and resected this area of ileum. I used the TLC 75 stapler and divided the small bowel just proximal to this loop of ileum with potential fistula. I used the LigaSure to divide the mesentery to this portion of small intestine. Once I reached the area of the small bowel distal to this portion of ileum, I divided that using the TLC 75 stapler as well. The intervening loop of ileum was about 20 cm and the suspicious adhesion was left intact. I then used the TLC 75 stapler and created a [id number] but functional end-to-end anastomosis between the remaining ends of ileum. The TLC 60 stapler was then used to close the enteroenterostomy. All looked good. I did use some cautery on the TLC 60 staple line for hemostasis. I then closed the mesentery between the loops of ileum to avoid internal herniation. 4-0 silk suture were used to close the mesenteric defect. All looked good with this small-bowel resection. We then turned our attention back to the sigmoid colon. The sigmoid was freed from the left lateral pelvic adhesions. I was then able to get access to the mesentery of the distal sigmoid and upper rectum by dissecting over the sacral promontory. I used the LigaSure to divide some mesentery of the mid to distal sigmoid up to the planned line of proximal resection. Once this was completed, I used the TLC 75 and divided the sigmoid in this area. I then further dissected the lateral peritoneal sidewalls of the mesentery down in to the upper rectum but staying into the peritoneal cavity. I mobilized the lateral peritoneal attachments to the upper rectum. I then carefully used the LigaSure to divide the mesenteric attachments to the area of upper rectum where we planned to perform our distal line of resection. Once this was freed adequately, I then used the contour stapler to divide the remaining sigmoid and upper rectum from the remainder of the rectum. This specimen was sent to pathology labeled sigmoid colon. The section of ileum was sent to pathology labeled ileum with fistula. I then reviewed the pelvis and used cautery to assure good hemostasis. I read checked the position of the left ureter and it was unharmed with the dissection. I then looked at the upper sigmoid at the staple line. This was soft and pliable. I removed some of the mesenteric fat from the bowel near the staple line. I then used the disposable pursestring clamp. After excising the staple line, we opened the bowel and reviewed the pursestring suture. This portion of upper sigmoid was small in diameter. I sutured the pursestring suture to the full-thickness bowel with several interrupted 4-0 silk suture. I then tried to slowly dilate the into the bowel with a large peon clamp. I then was barely able to pass the 25 EEA dilator. The diameter of the distal sigmoid was not very large. I decided to go ahead and use the 25 EEA. The anvil of the 25 EEA was then placed in the pursestring and the pursestring was tied down. Dr. Cheung came to the operating room and performed the rectal portion of the EEA anastomosis. Sizers were advanced per the rectum up to the staple line. The 25 EEA was then passed per rectum up to the staple line. The post was advanced. The anvil was attached to the post and the stapler was closed. It was fired and then removed from the distal colon and rectum. The colon side doughnut was incomplete. It was felt that this was likely due to the large amount of mucosa that had been contained within the pursestring suture once it was tied. This, plus the small diameter of the stapler, most likely lead to this doughnut not being complete. Dr. Cheung then placed the proctoscope in the rectum. He insufflated the rectum and I held the distal descending colon so that the intervening bowel including the staple line would dilate. We put the staple line under water and perform this leak test 2 different times. All looked good. There was no evidence of bubbling or other leakage. There were no places on the anastomosis that appeared dusky or under tension. Dr. Cheung then passed the proctoscope up to the anastomosis and beyond it. All looked good. The proctoscope was withdrawn. We evacuated the saline from the pelvis. I again reviewed the staple line as well as the small bowel staple line. We position the intestine in the abdomen in gentle S shaped curves and placed the omentum over top. We then used the Trevor cone and 0 Vicryl to close the fascia at the trocar sites. Following this, the surgical team changed gown and gloves and a clean closure tray was used. The hand access port was closed at the peritoneal level with 0 chromic suture. The midline fascia was closed in bidirectional fashion with 0 PDS suture. The subcu was closed with interrupted 3-0 Vicryl suture. Subcuticular interrupted 3-0 Vicryl sutures were placed to loosely approximate the skin. The 3 trocar sites as well as the hand access incision were then all closed with subcuticular running 4-0 Monocryl skin suture. The wounds were dressed with Exofin surgical adhesive. The Erazo catheter was removed. the patient was placed in a supine position. He was awakened and extubated. He transferred to recovery in good condition. Estimated Blood Loss -100 Drains No Packing No Pathology Yes ( Ileum with fistula, sigmoid colon) Complications None Condition Stable Disposition PACU [facility] Billing Surgery - Charge Forward: Surgery Billing ( hand access laparoscopic sigmoidectomy with anastomosis, small-bowel resection)
--- NOTE | 2024-12-28 17:07 | ADMGEN ---
This patient, Joseph Burden, was admitted to -. Patient/family oriented to hospital policies and general routines including ID bracelet, bed and alarms, visiting hours, pain management, procedures, bathroom and other care routines, personal items, smoking policy, room service/diet, and visiting hours. Information on how to activate the Rapid Response Team has been discussed. Patient/Family are encouraged to report perceived risks to care and to ask questions if they do not understand what they are told or what they should do.
[2024-12-28] MEDS: LACTATED RINGERS 1,000 ML 100 ML IV CONT (17:47)
--- NOTE | 2024-12-28 19:06 | PC.NURSE ---
Pt set up off bed alarm and could be heard through the door yelling G*d D*mn. This RN to pt bed alarm sounding. Pt states he hates hospitals and doesn't want the alarm on. Pt educated about being a fall risk related to new environment, procedure with sedation, pain medications, etc. PT still refusing. Educated pt that he should call if he felt dizzy or needed any assistance at all. supervisor carton and can supply notified.
[2024-12-28] MEDS: FAMOTIDINE 20 MG/2 ML VIAL IV PUSH (21:13)
[2024-12-28] MEDS: oxyCODONE/ACETAMINOPHEN (*CRX) 5-325 MG TABLET 1 TABLET PO (21:21)
[2024-12-29] VITALS (7 sets, daily range): BP systolic 103–130; BP diastolic 54–75; PULSE 63–85; RESP 14–24; TEMP 36.4–37.1; O2SAT 96–100
[2024-12-29] MEDS: MORPHINE SULFATE (*CRX) 2 MG/ML INJ 1 MG IV PUSH ×2 (04:03→14:27)
[2024-12-29] MEDS: LACTATED RINGERS 1,000 ML 100 ML IV CONT ×2 (04:04→17:13)
[2024-12-29] MEDS: oxyCODONE/ACETAMINOPHEN (*CRX) 5-325 MG TABLET 1 TABLET PO ×4 (06:35→22:09)
[2024-12-29 06:53] LABS: Hematocrit 36.1 % (42.0-52.0); Hemoglobin 12.0 g/dL (14.0-18.0); Mean Corpuscular HGB Conc 33.2 g/dl (32-36); Mean Corpuscular Hemoglobin 30.6 pg (26-34); Mean Corpuscular Volume 92.1 fl (80-100); Platelet Count Result 161 k/mm3 (150-375); Red Blood Count 3.92 M/mm3 (4.6-6.20); White Blood Count 13.1 K/mm3 (4.5-10.0)
[2024-12-29 07:06] LABS: Anion Gap 4 mmol/L (4-12); Blood Urea Nitrogen 12 mg/dL (9-20); Calcium 8.8 mg/dL (8.4-10.2); Carbon Dioxide 27 mmol/L (22-30); Chloride 104 mmol/L (98-107); Estimated CRCL calculation 70 ml/min; Estimated Glomerular Filt Rate > 60; Glucose 108 mg/dL (65-110); Potassium 4.1 mmol/L (3.4-5.0); Sodium 135 mmol/L (137-145)
--- NOTE | 2024-12-29 07:22 | PC.NURSE ---
Pt called at approx 0600 on this day with c/o SOB. Pt was satting 100% on RA. Assessed patient's lung sounds, pt producing shallow breaths, instructed to try to take deep breaths, pt states he was in too much pain to do so, I offered morphine, but pt refused. He stated, morphine is bad for you. I told him I gave it to him once already but he did not want anymore. Pt instructed on IS use, was able to get to 1000. Pt walked one lap around the unit, in a lot of pain, but wanted to do so anyway. Pt admits to being stubborn and old. I asked the patient if I could get him a percocet pain pill, and he was agreeable. Pt educated about pain management and pain control. Dr. Pierre at bedside at 0720 with orders to give 4mg morphine IV now.
[2024-12-29] MEDS: MORPHINE SULFATE (*CRX) 4 MG/ML INJ IV PUSH (07:23)
--- NOTE | 2024-12-29 07:25 | ECG_ITS ---
Test Date: 2024-12-29 07:44:54 Measurements Intervals [place] Rate: 80 P: 68 MT: 136 QRS: -56 QRSD: 101 T: 72 QT: 289 QTc: 335 Interpretive Statements SINUS RHYTHM LEFT AXIS DEVIATION [QRS AXIS < -30] INCOMPLETE RIGHT BUNDLE BRANCH BLOCK [90+ ms QRS DURATION, TERMINAL R IN V1/V2, 40+ ms S IN I/aVL/V4/V5/V6] NONSPECIFIC T-WAVE ABNORMALITY ABNORMAL ECG Compared to ECG 12/24/2024 08:49:43 HEART RATE INCREASED INCOMPLETE RIGHT BUNDLE BRANCH CONDUCTION IS NOTED Electronically Signed On 12-29-2024 16:15:55 CDT by Larry Green M.D.
--- NOTE | 2024-12-29 07:28 | PM.PNGS ---
Progress Note: A&P Assessment and Plan (1) Diffuse abdominal pain: Code(s): R10.84 - Generalized abdominal pain Status: Acute Assessment and Plan: Patient went to the bathroom had a diarrheal stool. Soon after that he developed severe diffuse abdominal pain. He had some morphine about 5 hours ago. He had a Percocet after this pain started. He describes it as 8/10 and starting abruptly. Nursing felt that he was trying to tough it out and has not been taking pain medication as he should through out the night. At present, he is in severe pain may and I feel we should rule other reasons for this aside from incisional pain. Will get ABGs, EKG, chest x-ray, CTA chest abdomen and pelvis. Morning labs are unremarkable. Elevated white blood cell count is expected following sigmoidectomy. Will make NPO for now. (2) Shortness of breath: Code(s): R06.02 - Shortness of breath Status: Acute Assessment and Plan: Very painful to try to lay back in bed. If does not have his head up he is very short of breath. See above (3) S/P colon resection: Code(s): Z90.49 - Acquired absence of other specified parts of digestive tract Status: Acute Assessment and Plan: Also small-bowel resection performed less than [address] scan results. (4) Diverticulitis: Code(s): K57.92 - Diverticulitis of intestine, part unspecified, without perforation or abscess without bleeding Status: Chronic Assessment and Plan: Recurrent multiple episodes led to surgery yesterday. (5) Tobacco abuse: Code(s): Z72.0 - Tobacco use Status: Chronic Assessment and Plan: Stopped three weeks ago for surgery. (6) Alcohol use: Code(s): Z78.9 - Other specified health status Status: Chronic Assessment and Plan: Admits to 3 fingers of bourbon nightly. Subjective Subjective Date/Time Seen: 12/29/24 07:28 Post Op day: 1 Patient reports: still having pain (Having severe abdominal pain and can not get his breath without sitting up. Received Percocet an hour ago and still rates 8/10), bowel movement (Pain started after loose bowel movement about 3 hours ago), shortness of breath (Nursing reports sats are 100%) and afebrile Exam Const: General: cooperative and awake; No comfortable (Having severe pain) or acute distress Nutritional Appearance: thin Orientation/consciousness: No confusion Resp: Effort & Inspection: not able to speak in complete sentences and other (Can not take a deep breath due to abdominal pain) Auscultation: clear to auscultation bilaterally, no rales, no rhonchi and no wheezes GI: Inspection: no abdominal wall ecchymosis, non-distended, incision (Dry and healing well) and scaphoid GI Palp: Yes Firmness to palpation present (GI) and Yes Tenderness to palpation present (GI) (Diffusely tender with guarding) Auscultation: Hypoactive bowel sounds present Objective Data Vital Signs Vital Signs: Vital Signs - 24 hr 12/28/24 09:51 12/28/24 15:30 12/28/24 15:45 Temperature 36.5 C 36.3 C L Pulse Rate 86 73 67 Respiratory Rate 16 16 10 L Blood Pressure 94/59 L 99/55 L 104/62 Pulse Oximetry 100 99 100 Oxygen Delivery Room Air Simple Face Mask Simple Face Mask Oxygen Flow Rate 8 8 Fraction of Inspired Oxygen 12/28/24 16:00 12/28/24 16:10 12/28/24 16:15 Temperature Pulse Rate 62 82 Respiratory Rate 10 L 16 Blood Pressure 107/65 123/74 Pulse Oximetry 100 99 Oxygen Delivery Simple Face Mask Room Air Room Air Oxygen Flow Rate 8 Fraction of Inspired Oxygen 12/28/24 16:30 12/28/24 16:45 12/28/24 17:15 Temperature 36.2 C L 36.4 C Pulse Rate 80 67 60 Respiratory Rate 15 14 19 Blood Pressure 115/68 126/67 119/62 Pulse Oximetry 98 99 100 Oxygen Delivery Room Air Room Air Oxygen Flow Rate Fraction of Inspired Oxygen 12/28/24 17:30 12/28/24 18:00 12/28/24 19:39 Temperature 36.4 C Pulse Rate 66 66 73 Respiratory Rate 19 19 20 Blood Pressure 118/73 105/87 Pulse Oximetry 100 100 93 Oxygen Delivery Room Air Oxygen Flow Rate Fraction of Inspired Oxygen 12/28/24 20:00 12/28/24 21:00 12/29/24 00:59 Temperature 36.3 C L 36.4 C Pulse Rate 84 63 Respiratory Rate 18 14 Blood Pressure 111/61 103/54 L Pulse Oximetry 100 96 Oxygen Delivery Room Air Oxygen Flow Rate Fraction of Inspired Oxygen Intake/Output Intake/Output: Intake & Output 12/26/24 12/27/24 12/28/24 12/29/24 23:59 23:59 23:59 23:59 Intake Total 250 1000 Balance 250 1000 Meds/Results Medications: Active Medications Generic Name Dose Route Start Last Admin Trade Name Freq PRN Reason Stop Dose Admin Acetaminophen 500 mg 12/28/24 17:25 Acetaminophen 500 Mg Tablet PO Q6H PRN Pain Rated 1-3 Alvimopan 12 mg 12/29/24 21:00 Alvimopan 12 Mg Capsule PO 01/05/25 20:59 Q12HR CLAUDIA Enoxaparin Sodium 40 mg 12/29/24 09:00 Enoxaparin 40 Mg/0.4 Ml Syringe SUB-Q DAILY CLAUDIA Famotidine 20 mg 12/28/24 21:00 12/28/24 21:13 Famotidine 20 Mg/2 Ml Vial IV PUSH 20 mg Q12HR CLAUDIA Administration Lactated Ringer's 1,000 mls @ 100 mls/hr 12/28/24 17:20 12/29/24 04:04 Lr - Lactated Ringers Iv IV CONT 100 mls/hr .Q10H CLAUDIA Administration Morphine Sulfate 1 mg 12/28/24 17:25 12/29/24 04:03 Morphine Sulfate (*Crx) 2 Mg/Ml Inj IV PUSH 1 mg Q2H PRN Administration Breakthrough Pain Rated 4-6 or NPO Morphine Sulfate 2 mg 12/28/24 17:25 Morphine Sulfate (*Crx) 4 Mg/Ml Inj IV PUSH Q2H PRN Breakthrough Pain Rated 7-10 or NPO Naloxone HCl 0.1 mg 12/28/24 17:27 Naloxone Hcl 0.4 Mg/Ml Vial IV PUSH Q2M PRN Opiate Reversal Ondansetron HCl 4 mg 12/28/24 17:25 Ondansetron Inj 4 Mg/2 Ml Vial IV PUSH Q4H PRN Nausea And Vomiting Oxycodone/Acetaminophen 1 tablet 12/28/24 17:25 12/29/24 06:35 Oxycodone/Acetaminophen (*Crx) 5-325 Mg Tablet PO 1 tablet Q4H PRN Administration Pain Rated 4-6 Labs Labs: Laboratory Results - last 24 hr 12/29/24 06:17 WBC 13.1 H RBC 3.92 L Hgb 12.0 L Hct 36.1 L MCV 92.1 MCH 30.6 MCHC 33.2 RDW 12.5 Plt Count 161 MPV 9.3 Sodium 135 L Potassium 4.1 Chloride 104 Carbon Dioxide 27 Anion Gap 4 BUN 12 D Creatinine 0.79 Estim Creat Clear Calc 70 Estimated GFR > 60 Glucose 108 Calcium 8.8
[2024-12-29 07:57] LABS: Alveolar/Arterial O2 Gradient 3.6 mmHg; Fractional Inspired Oxygen 21 %; HCO3 ABG 22.4 mEq/l (22.0-26.0); Oxygen Content ABG 18.1 %vol (16.0-22.0); Oxygen Saturation ABG 98.1 % (95.0-100.0); PCO2 ABG 33.5 mmHg (35.0-45.0); PO2 ABG 106.0 mmHg (80.0-100.0); PO2 FiO2 Ratio Arterial Blood 5.05 %
[2024-12-29 08:15] LABS: Modified Allen's Test Pass; Site Drawn RIGHT RADIAL
--- NOTE | 2024-12-29 09:38 | PC.NURSE ---
Upon receiving report on pt, Ignacio to floor to assess pt. Pt had been trying to avoid pain medications throughout the night. Pt ended up very SOB with c/o inability to take a deep breath. Pt states it came on suddenly while night RN stated that it had been developing for a while. Verbal order received to give 4 mg morphine stat IVP. Medicine given. Pt had EKG, ABG, stat CXR and CTA chest, abdomen, pelvis. prior to leaving for CT/CXR pt states he already feels much better. This RN can see vast improvement in pt WOB, pain, decreased resp rate and pt anxiety. Pt to CT. Received call from radiology that pt unable to lie flat to complete CT. This RN advised to use oxygen if needed to complete test. If he was still unable to tolerate lying flat, this RN would call Ignacio to get further orders. Pt returned to floor, walking around the room calmly. He states he feels much better. Educated pt on need to control pain to help prevent such soreness that would keep him from breathing normally. Also, educated pt on IS, sitting in a chair as much as he can tolerate to open lung cantrell, ambulate frequently as pain allows. Pt states no further pain, no SOB noted at all, pt extremely calm and even pleasant, stating he felt silly. Assured him it was normal and tests were reassuring, but that Ignacio would be able to review results with him more completely.
[2024-12-29] MEDS: FAMOTIDINE 20 MG/2 ML VIAL IV PUSH ×2 (14:35→22:09)
[2024-12-29] MEDS: ENOXAPARIN 40 MG/0.4 ML SYRINGE SUB-Q (14:36)
--- NOTE | 2024-12-29 14:37 | WPDANESPN ---
Anes - Prog Note Post-Op Date/Time: 12/29/24 14:37 Cardiovascular status: normal Respiratory status: normal Airway patency: baseline Mental status: baseline Post-Op hydration status: normal Vital Signs: Last Vital Signs Temp 37.1 C 12/29/24 12:00 Pulse 85 12/29/24 12:00 Resp 18 12/29/24 12:00 BP 130/62 12/29/24 12:00 Pulse Ox 98 12/29/24 12:00 O2 Del Method Room Air 12/29/24 09:36 O2 Flow Rate 8 12/28/24 16:00 FiO2 21 12/28/24 19:39 Pain Score (VAS): 3 I/O: Intake & Output 12/28/24 12/29/24 12/29/24 23:59 07:59 15:59 Intake Total 100 1000 480 Balance 100 1000 480 Laboratory Tests 12/29/24 06:17 12/29/24 06:17 12/29/24 12/29/24 06:17 07:34 WBC 13.1 H RBC 3.92 L Hgb 12.0 L Hct 36.1 L MCV 92.1 MCH 30.6 MCHC 33.2 RDW 12.5 Plt Count 161 MPV 9.3 Puncture Site Right radial ABG pH 7.444 ABG pCO2 33.5 L ABG pO2 106.0 H ABG PO2/FiO2 Ratio 5.05 ABG HCO3 22.4 ABG O2 Saturation 98.1 ABG O2 Content 18.1 ABG Base Excess -1.0 A-a Gradient 3.6 Oxyhemoglobin 96.6 Total Hemoglobin 13.2 O2 Delivery Device Room air O2 Liters/Min Not Reportable FiO2 21 Sodium 135 L Potassium 4.1 Chloride 104 Carbon Dioxide 27 Anion Gap 4 BUN 12 D Creatinine 0.79 Estim Creat Clear Calc 70 Estimated GFR > 60 Glucose 108 Calcium 8.8 Post-procedural complaints: none Patient Feedback: Patient satisfied with anesthetic care.
[2024-12-29] MEDS: ALVIMOPAN 12 MG CAPSULE PO (22:09)
[2024-12-30 00:45] VITALS: BP 124/81; PULSE 80; RESP 16; TEMP 36.9; O2SAT 95
[2024-12-30] MEDS: MORPHINE SULFATE (*CRX) 4 MG/ML INJ 2 MG IV PUSH (02:48)
[2024-12-30 04:32] VITALS: BP 122/76; PULSE 85; RESP 15; TEMP 36.4; O2SAT 96
[2024-12-30] MEDS: oxyCODONE/ACETAMINOPHEN (*CRX) 5-325 MG TABLET 1 TABLET PO ×3 (05:29→14:27)
[2024-12-30 06:16] LABS: Hematocrit 34.2 % (42.0-52.0); Hemoglobin 11.3 g/dL (14.0-18.0); Mean Corpuscular HGB Conc 33.0 g/dl (32-36); Mean Corpuscular Hemoglobin 31.0 pg (26-34); Mean Corpuscular Volume 93.7 fl (80-100); Platelet Count Result 150 k/mm3 (150-375); Red Blood Count 3.65 M/mm3 (4.6-6.20); White Blood Count 11.8 K/mm3 (4.5-10.0)
[2024-12-30 06:42] LABS: Anion Gap 5 mmol/L (4-12); Blood Urea Nitrogen 8 mg/dL (9-20); Calcium 9.2 mg/dL (8.4-10.2); Carbon Dioxide 30 mmol/L (22-30); Chloride 101 mmol/L (98-107); Estimated CRCL calculation 74 ml/min; Estimated Glomerular Filt Rate > 60; Glucose 97 mg/dL (65-110); Potassium 4.2 mmol/L (3.4-5.0); Sodium 136 mmol/L (137-145)
--- NOTE | 2024-12-30 08:02 | PM.PNGS ---
Progress Note: A&P Assessment and Plan (1) Diffuse abdominal pain: Code(s): R10.84 - Generalized abdominal pain Status: Acute Assessment and Plan: this is was yesterday morning. It was concerning that he had an acute abdomen but imaging and labs were negative. He responded well to 4 mg of IV morphine. He is much better but sleeps in a chair because the bed is uncomfortable. His abdomen is still firm and diffusely tender But much better than yesterday. And he is not complaining of shortness of breath. (2) Shortness of breath: Code(s): R06.02 - Shortness of breath Status: Acute Assessment and Plan: No complaints of this Since yesterday. Workup negative for acute pulmonary process. (3) S/P colon resection: Code(s): Z90.49 - Acquired absence of other specified parts of digestive tract Status: Acute Assessment and Plan: Also small-bowel resection. tolerating liquids. Abdomen still very tender and firm. Will increase his Percocet dose and also his morphine dose. He has been up walking per nursing. Advance to soft diet. (4) Diverticulitis: Code(s): K57.92 - Diverticulitis of intestine, part unspecified, without perforation or abscess without bleeding Status: Chronic Assessment and Plan: Recurrent multiple episodes led to surgery 12/28/24. Pathology pending (5) Tobacco abuse: Code(s): Z72.0 - Tobacco use Status: Chronic Assessment and Plan: Stopped three weeks ago for surgery. (6) Alcohol use: Code(s): Z78.9 - Other specified health status Status: Chronic Assessment and Plan: Admits to 3 fingers of bourbon nightly. Subjective Subjective Date/Time Seen: 12/30/24 08:02 Post Op day: 2 Patient reports: pain is less (Taking pain medicine when needed), tolerating liquids well, flatus, no bowel movement and afebrile Interval history: entire workup done yesterday morning for potential pulmonary embolism, pneumonia, acute intra-abdominal process was negative. Patient responded to the initial dose of 4 mg IV morphine sulfate and was much better. Most likely he was not taking analgesics as recommended. Exam Const: General: cooperative, comfortable, awake ( awakened easily) and other ( Sleeping in a chair because the bed is not comfortable for him) Nutritional Appearance: underweight GI: Inspection: non-distended, incision ( dry and healing) and scaphoid GI Palp: Yes Firmness to palpation present (GI) and Yes Tenderness to palpation present (GI) Auscultation: Hypoactive bowel sounds present Objective Data Vital Signs Vital Signs: Vital Signs - 24 hr 12/29/24 09:36 12/29/24 12:00 12/29/24 19:35 Temperature 37.1 C 36.7 C Pulse Rate 85 84 Respiratory Rate 16 18 15 Blood Pressure 130/62 123/75 Pulse Oximetry 100 98 99 Oxygen Delivery Room Air 12/29/24 20:00 12/29/24 20:12 12/30/24 00:45 Temperature 36.9 C Pulse Rate 80 Respiratory Rate 16 Blood Pressure 124/81 Pulse Oximetry 98 95 Oxygen Delivery Room Air Autopap 12/30/24 04:32 Temperature 36.4 C L Pulse Rate 85 Respiratory Rate 15 Blood Pressure 122/76 Pulse Oximetry 96 Oxygen Delivery Intake/Output Intake/Output: Intake & Output 12/27/24 12/28/24 12/29/24 12/30/24 23:59 23:59 23:59 23:59 Intake Total 250 3216.7 Balance 250 3216.7 Meds/Results Medications: Active Medications Generic Name Dose Route Start Last Admin Trade Name Freq PRN Reason Stop Dose Admin Acetaminophen 500 mg 12/28/24 17:25 Acetaminophen 500 Mg Tablet PO Q6H PRN Pain Rated 1-3 Alvimopan 12 mg 12/29/24 21:00 12/29/24 22:09 Alvimopan 12 Mg Capsule PO 01/05/25 20:59 12 mg Q12HR CLAUDIA Administration Enoxaparin Sodium 40 mg 12/29/24 09:00 12/29/24 14:36 Enoxaparin 40 Mg/0.4 Ml Syringe SUB-Q 40 mg DAILY CLAUDIA Administration Famotidine 20 mg 12/28/24 21:00 12/29/24 22:09 Famotidine 20 Mg/2 Ml Vial IV PUSH 20 mg Q12HR CLAUDIA Administration Lactated Ringer's 1,000 mls @ 60 mls/hr 12/28/24 17:20 12/29/24 22:11 Lr - Lactated Ringers Iv IV CONT 60 mls/hr .[id number] CLAUDIA Infusion Morphine Sulfate 1 mg 12/28/24 17:25 12/29/24 14:27 Morphine Sulfate (*Crx) 2 Mg/Ml Inj IV PUSH 1 mg Q2H PRN Administration Breakthrough Pain Rated 4-6 or NPO Morphine Sulfate 2 mg 12/28/24 17:25 12/30/24 02:48 Morphine Sulfate (*Crx) 4 Mg/Ml Inj IV PUSH 2 mg Q2H PRN Administration Breakthrough Pain Rated 7-10 or NPO Naloxone HCl 0.1 mg 12/28/24 17:27 Naloxone Hcl 0.4 Mg/Ml Vial IV PUSH Q2M PRN Opiate Reversal Ondansetron HCl 4 mg 12/28/24 17:25 Ondansetron Inj 4 Mg/2 Ml Vial IV PUSH Q4H PRN Nausea And Vomiting Oxycodone/Acetaminophen 1 tablet 12/28/24 17:25 12/30/24 05:29 Oxycodone/Acetaminophen (*Crx) 5-325 Mg Tablet PO 1 tablet Q4H PRN Administration Pain Rated 4-6 Radiology Results: ITS Impressions Chest X-Ray 12/29/24 08:04 IMPRESSION: 1. No acute cardiopulmonary findings. 2. Free intraperitoneal air, presumably recent surgery. Chest/Abdomen/Pelvis CTA 12/29/24 08:23 IMPRESSION: 1. Changes consistent with recent bowel surgery with anastomotic suture lines at the rectosigmoid junction and in the distal small bowel and scattered free intraperitoneal, extraperitoneal and body wall gas. No evident abscess or free intraperineal fluid. 2. Mild emphysema. No pulmonary embolism or other acute cardiopulmonary disease. 3. No change in a couple indeterminate 5 mm pulmonary nodules in the bilateral lower lobes. Could consider optional follow-up chest CT at 12 months. 4. 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 Labs Labs: Laboratory Results - last 24 hr 12/29/24 12/30/24 07:34 05:09 WBC 11.8 H RBC 3.65 L Hgb 11.3 L Hct 34.2 L MCV 93.7 MCH 31.0 MCHC 33.0 RDW 12.7 Plt Count 150 MPV 9.6 Puncture Site Right radial ABG pH 7.444 ABG pCO2 33.5 L ABG pO2 106.0 H ABG PO2/FiO2 Ratio 5.05 ABG HCO3 22.4 ABG O2 Saturation 98.1 ABG O2 Content 18.1 ABG Base Excess -1.0 A-a Gradient 3.6 Oxyhemoglobin 96.6 Total Hemoglobin 13.2 O2 Delivery Device Room air O2 Liters/Min Not Reportable FiO2 21 Sodium 136 L Potassium 4.2 Chloride 101 Carbon Dioxide 30 Anion Gap 5 BUN 8 L Creatinine 0.74 Estim Creat Clear Calc 74 Estimated GFR > 60 Glucose 97 Calcium 9.2
[2024-12-30] MEDS: ALVIMOPAN 12 MG CAPSULE PO ×2 (09:26→20:33)
[2024-12-30] MEDS: FAMOTIDINE 20 MG TABLET PO ×2 (09:27→20:33)
[2024-12-30 14:00] VITALS: BP 117/66; PULSE 84; RESP 14; TEMP 36.5; O2SAT 98
[2024-12-30] MEDS: oxyCODONE/ACETAMINOPHEN (*CRX) 10-325 MG TABLET 1 TAB PO (20:33)
[2024-12-30 22:00] VITALS: BP 119/76; PULSE 80; RESP 20; TEMP 37.2; O2SAT 99
[2024-12-31 06:00] VITALS: BP 118/76; PULSE 83; RESP 20; TEMP 37.3; O2SAT 97
[2024-12-31] MEDS: oxyCODONE/ACETAMINOPHEN (*CRX) 5-325 MG TABLET 1 TABLET PO (06:42)
[2024-12-31 07:01] LABS: Hematocrit 33.8 % (42.0-52.0); Hemoglobin 10.9 g/dL (14.0-18.0); Mean Corpuscular HGB Conc 32.2 g/dl (32-36); Mean Corpuscular Hemoglobin 30.4 pg (26-34); Mean Corpuscular Volume 94.4 fl (80-100); Platelet Count Result 144 k/mm3 (150-375); Red Blood Count 3.58 M/mm3 (4.6-6.20); White Blood Count 9.3 K/mm3 (4.5-10.0)
[2024-12-31 07:22] LABS: Anion Gap 5 mmol/L (4-12); Blood Urea Nitrogen 7 mg/dL (9-20); Calcium 9.2 mg/dL (8.4-10.2); Carbon Dioxide 33 mmol/L (22-30); Chloride 101 mmol/L (98-107); Estimated CRCL calculation 76 ml/min; Estimated Glomerular Filt Rate > 60; Glucose 85 mg/dL (65-110); Potassium 3.9 mmol/L (3.4-5.0); Sodium 139 mmol/L (137-145)
[2024-12-31] MEDS: FAMOTIDINE 20 MG TABLET PO (09:32)
[2024-12-31] MEDS: ALVIMOPAN 12 MG CAPSULE PO (09:33)
--- NOTE | 2024-12-31 09:52 | P.DS_ITS ---
DS: Admitting Diagnosis Discharge Date 12/31/2024 Admitting Diagnosis * Recurrent sigmoid diverticulitis * Smoker * Alcohol use DS: Discharge Diagnosis Discharge Diagnosis (1) Diverticulitis: Code(s): K57.92 - Diverticulitis of intestine, part unspecified, without perforation or abscess without bleeding Status: Chronic Assessment and Plan: Multiple previous episodes. Underwent sigmoidectomy by hand access laparoscopic technique on the day of admission 12/28/2024 (2) S/P colon resection: Code(s): Z90.49 - Acquired absence of other specified parts of digestive tract Status: Acute Assessment and Plan: Pathology showed diverticulosis on the colon and an adhesion, not a fistula, on the small-bowel resection. (3) Heavy alcohol use: Code(s): F10.90 - Alcohol use, unspecified, uncomplicated Status: Chronic Assessment and Plan: Three fingers of bourbon nightly (4) Tobacco abuse: Code(s): Z72.0 - Tobacco use Status: Chronic Assessment and Plan: Stop smoking about 1 month ago and agrees to hold off for at least another month. 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 He had stopped smoking for 3-4 weeks prior to surgery as recommended. He underwent hand access laparoscopic sigmoidectomy with stapled EEA anastomosis. He had dense adhesions to his bladder of both the sigmoid colon and some ileum. At surgery, I was concerned he may have a fistula to his urinary bladder. No fistula was seen. 400 cc of methylene blue were instilled in the bladder with no evidence of leakage. The area of ileum associated with this also had a very dense adhesions suggestive of a fistula between 2 loops of adjacent bowel. This was resected and anastomosed. Pathology showed diverticulosis on the sigmoid colon. The small intestine showed only a dense adhesion, no fistula. There was no signs of fat wrapping or stricture to suggest inflammatory bowel disease. Following surgery, the patient was in severe pain with shortness of breath the day after surgery. He had not been taking his pain medication through the night. He responded quickly to 4 mg IV morphine sulfate. Thorough workup including CTA chest abdomen and pelvis, ABGs, chest x-ray, EKG were done and all were negative. From there his recovery was pretty uneventful. He was advanced to full liquids later on day 1. He was on a soft diet on day 2. By postop day 3., 12/31/2024, he was comfortable on oral analgesics, ambulating independently, and at had bowel movements. He was able to be discharged in good condition on postop day 3. Time spent discussing smoking cessation with patient: 3 to 10 minutes Status at Discharge Functional status at discharge: independent ambulation Overall status at discharge: patient is progressing back to baseline Time Spent with Patient Time attestation: Total time spent providing and/or coordinating discharge services: Time spent: Less than 30 minutes DS: Data Data Completed and Pending Completed studies during hospitalization: Pending at discharge 12/28/24 13:19 Surgical [PTH] Routine Surgical [PTH] Routine Labs on day of discharge: Labs from last 24 hours 12/31/24 06:09 WBC 9.3 RBC 3.58 L Hgb 10.9 L Hct 33.8 L MCV 94.4 MCH 30.4 MCHC 32.2 RDW 12.3 Plt Count 144 L MPV 9.7 Sodium 139 Potassium 3.9 Chloride 101 Carbon Dioxide 33 H Anion Gap 5 BUN 7 L Creatinine 0.72 Estim Creat Clear Calc 76 Estimated GFR > 60 Glucose 85 Calcium 9.2 Discharge Plan Discharge Attending physician on discharge: Suraj Pierre Discharging Clinician: Suraj Pierre Anticipated Discharge Date/Time: 12/31/24 10:06 Patient Disposition: Home Activity: may shower, no straining and as tolerated Diet: regular Wound Care Instructions: incision open to air Discharge Instructions: * Ambulate 3-4 x per day and as tolerated. * No lifting over 15-20lbs. * May bathe or shower. Wash incisions with soap when bathing or showering. * Stairs are OK. * May drive a car in 3 days. * Resume usual regular diet. * Call Dr. Asher office to make an appointment to see him in 2 weeks. * Take the prescription pain medication, Percocet, only when really needed. This can be constipating. Feel free to try plain Tylenol or ibuprofen as needed for pain as well. Patient Instructions: Antibiotic Form Patient Language: Ecuad[place] Stand Alone Forms: General Discharge Information Follow-up/Referrals: Suraj Pierre MD [Physician, General Surgery] - 2 Weeks Referral Note: Call Dr. Asher office to make appointment Discharge Medications: New oxycodone-acetaminophen [Percocet] 5-325 mg tablet 1 - 2 tablet PO Q6H PRN (Reason: pain) Qty: 25 0RF Discontinued ciprofloxacin HCl 500 mg tablet 500 mg PO .COMPLEX Qty: 1 0RF Rx Instructions: 500 mg orally 1 tablet by mouth at 2:00 pm; metronidazole 500 mg tablet 500 mg PO .COMPLEX Qty: 3 0RF Rx Instructions: 500 mg orally 1 tablet by mouth at 1:00 pm, 2:00 pm, and 11:00 pm; Date of admission: 12/28/24 17:25 Primary Care Provider: Francesco Andrade Admitting Provider: Suraj Pierre Attending physician on admission: Suraj Pierre Condition: Improved
== END 2024-12-31 12:05 | disposition home or self-care (01) | DRG 331 ==
LOC: ANH3MEDSUR 17:26
PROVIDERS: Admitting Provider Surgery; PCP Internal Medicine; Visit Provider Surgery
PROC: 0D1E4Z4 Bypass Large Intestine to Cutaneous, Percutaneous Endoscopic Approach (ICD-10-PCS; principal; 2024-12-28 11:00)
DX: K57.32 Diverticulitis of large intestine without perforation or abscess without bleeding (principal); K66.0 Peritoneal adhesions (postprocedural) (postinfection); G89.18 Other acute postprocedural pain; M19.90 Unspecified osteoarthritis, unspecified site; F41.9 Anxiety disorder, unspecified; Z87.891 Personal history of nicotine dependence
CPT/HCPCS: 36415; 36600; 71046; 71275; 74177; 80048; 82805; 85018; 85027; 88307; 93005; J0690; A9270; C1729; J1100; J1171; J1650; J1836; J1885; J2003; J2250; J2270; J2405; J2704; J3010; J7030; J7120; Q9967; Q9968